=== PATIENT | female | born 1995 | race African-American/Black ===

== ENCOUNTER 2017-05-09 11:11 | Emergency (ER) | payer OTHER ==
[2017-05-09 11:43] LABS: Bilirubin Negative (Negative); Blood, Urine Moderate (Negative); Glucose, Urine (Dipstick) Negative (Negative); Ketone, Urine Negative (Negative); Nitrite Negative (Negative); Protein, Urine (Dipstick) Negative (Neg-Trace)
[2017-05-09 11:46] LABS: Bacteria/HPF Rare-Few HPF (None Seen); Hyaline Casts/LPF 0-3 HYALINE CAST LPF (0-3 Hyaline); RBC/HPF 21-50 HPF (0-3); WBC/HPF 21-50 HPF (0-3)
[2017-05-09] MEDS ORDERED: cefTRIAXone\\ROCEPHIN 1 GM VIAL ONE (13:25)
[2017-05-09] MEDS ORDERED: Lidocaine 1% PF 5 ML VIAL ONE (13:25)
== END 2017-05-09 13:50 | disposition home or self-care (01) ==
LOC: ERS 11:11
DX: N93.9 Abnormal uterine and vaginal bleeding, unspecified (principal); J45.909 Unspecified asthma, uncomplicated; F20.9 Schizophrenia, unspecified; F31.9 Bipolar disorder, unspecified; Z20.2 Contact with and (suspected) exposure to infections with a predominantly sexual mode of transmission
CPT/HCPCS: 81003; 81015; 81025; 87086; 87480; 87491; 87510; 87591; 87660; 96372; J0696; J2001

== ENCOUNTER 2017-07-27 02:05 | Emergency (ER) | payer SELFPAY ==
[2017-07-27] MEDS ORDERED: Ketorolac Tromethamine 30 MG/ML VIAL ONE (04:13)
--- NOTE | 2017-08-10 11:18 | EKG ---
Test Reason : Blood Pressure : / mmHG Vent. Rate : 063 BPM Atrial Rate : 063 BPM P-R Int : 170 ms QRS Dur : 072 ms QT Int : 406 ms P-R-T Axes : 009 055 043 degrees QTc Int : 415 ms Normal sinus rhythm with sinus arrhythmia Normal ECG Confirmed by LISANDRA POTTS M.D. ([id number]), book editor SG TOLEDO ([id number]) on 08/10/2017 11:18:12 AM Referred By: Confirmed By:LISANDRA POTTS M.D.
== END 2017-07-27 04:10 | disposition home or self-care (01) ==
LOC: ERS 02:05
DX: H60.92 Unspecified otitis externa, left ear (principal); J45.909 Unspecified asthma, uncomplicated; F31.9 Bipolar disorder, unspecified; F20.9 Schizophrenia, unspecified; D64.9 Anemia, unspecified
CPT/HCPCS: 93005; 96372; J1885

== ENCOUNTER 2017-10-18 12:46 | Emergency (ER) | payer SELFPAY ==
[2017-10-18 13:36] LABS: #Eosinphils 0.1 thou/uL (0.0-0.7); #Lymphocytes 1.3 thou/uL (1.20-3.40); #Monocytes 0.6 thou/uL (0.11-0.59); #Neutrophils 5.3 thou/uL (1.40-6.50); %Basophils 0.4 % (0.0-1.0); %Eosinophils 1.1 % (0.0-10.0); %Lymphocytes 17.8 % (21.0-51.0); %Monocytes 8.2 % (0.0-10.0); %Neutrophils 72.5 % (42.0-75.0); Hemoglobin 13.8 g/dL (12.0-16.0); Mean Corpuscular HGB CONC 33.6 g/dL (32.0-36.0); Mean Corpuscular Hemoglobin 30.8 pg (27.0-31.0); Mean Corpuscular Volume 91.8 fl (81.0-99.0); Mean Platelet Volume 6.6 fL (7.4-10.4); Platelet Count 284 thou/uL (130-400); RBC Distribution Width 11.5 % (11.5-14.5); Red Blood Cell (RBC) Count 4.48 mill/uL (4.20-5.40); White Blood Cell (WBC) Count 7.3 thou/uL (4.8-10.8)
[2017-10-18] MEDS ORDERED: Ibuprofen 800 MG TAB ONE (13:36)
[2017-10-18] MEDS ORDERED: Ondansetron HCl/PF 4 MG/2 ML Vial ONE (13:36)
[2017-10-18 14:02] LABS: Bilirubin Negative (Negative); Blood, Urine Negative (Negative); Clarity CLEAR (Clear); Glucose, Urine (Dipstick) Negative (Negative); Leukocyte Negative (Negative); Nitrite Negative (Negative); Protein, Urine (Dipstick) Trace mg/dL (Neg-Trace); Specific Gravity, Urine 1.022 (1.002-1.036)
[2017-10-18 14:03] LABS: Pregnancy Test - Urine (BHCG) Negative (Negative); Pregu Control Background? CLEAR/WHITE (CLR/WHITE); Pregu Control Bar Appear? YES (CONTROL BAR); Specific Gravity 1.022 (1.002-1.036)
== END 2017-10-18 15:33 | disposition home or self-care (01) ==
LOC: ERS 12:46
DX: B34.9 Viral infection, unspecified (principal); J45.909 Unspecified asthma, uncomplicated; D64.9 Anemia, unspecified; F31.9 Bipolar disorder, unspecified; F20.9 Schizophrenia, unspecified
CPT/HCPCS: 36415; 81003; 81025; 85025; 96361; 96374; J2405

== ENCOUNTER 2017-12-06 18:40 | Emergency (ER) | payer SELFPAY ==
[2017-12-06 19:17] LABS: Bilirubin Negative (Negative); Blood, Urine Negative (Negative); Clarity CLOUDY (Clear); Glucose, Urine (Dipstick) Negative (Negative); Leukocyte Negative (Negative); Nitrite Negative (Negative); Protein, Urine (Dipstick) Trace mg/dL (Neg-Trace); Specific Gravity, Urine 1.029 (1.002-1.036); pH, Urine 6.5 (5.0-9.0)
[2017-12-06 20:01] LABS: Eosinophils 1 % (0-10); Lymphocytes 64 % (21-51); MDiff Complete? YES; Mean Corpuscular HGB CONC 34.6 g/dL (32.0-36.0); Mean Corpuscular Hemoglobin 32.2 pg (27.0-31.0); Mean Corpuscular Volume 92.9 fl (81.0-99.0); Mean Platelet Volume 6.3 fL (7.4-10.4); Monocytes 5 % (0-10); Neutrophil 29 % (42-75); PLT Morphology Comment Appears Adequate; Platelet Count 307 thou/uL (130-400); RBC Distribution Width 11.2 % (11.5-14.5); RBC Morphology Normal; Reactive Lymphocytes 1 % (0-10); Red Blood Cell (RBC) Count 4.03 mill/uL (4.20-5.40); White Blood Cell (WBC) Count 5.1 thou/uL (4.8-10.8)
[2017-12-06] MEDS ORDERED: Ondansetron ODT 8 MG TAB ONE (20:11)
--- NOTE | 2017-12-06 21:46 | ULT ---
PELVIC ULTRASOUND WITH COLOR FLOW AND SPECTRAL DOPPLER: 12/06/17 HISTORY: Back pain. FINDINGS: The uterus is retroverted. A single live intrauterine gestation is seen with measurements correspondi ng to an estimated gestational age of 6 weeks, 1 day and HEIDI at 07/31/18. The crown-rump length measu res 0.44 cm and the heart rate measures 88 beats per minute. There is flow demonstrated to both ovaries. The ovaries are normal. No free fluid is seen in the cul- de-sac. IMPRESSION: Single live IUP of 6 weeks, 1 day estimated gestational age and HEIDI at 07/31/18. POS: [facility]
[2017-12-06] MEDS ORDERED: Promethazine HCl 25 MG/ML VIAL ONE (22:51)
== END 2017-12-07 00:10 | disposition home or self-care (01) ==
LOC: ERS 18:40
DX: O21.9 Vomiting of pregnancy, unspecified (principal); O99.511 Diseases of the respiratory system complicating pregnancy, first trimester; J45.909 Unspecified asthma, uncomplicated; O99.281 Endocrine, nutritional and metabolic diseases complicating pregnancy, first trimester; O99.011 Anemia complicating pregnancy, first trimester; O99.341 Other mental disorders complicating pregnancy, first trimester; F31.9 Bipolar disorder, unspecified; F20.9 Schizophrenia, unspecified; Z3A.01 Less than 8 weeks gestation of pregnancy
CPT/HCPCS: 36415; 76856; 81003; 84702; 85025; 96361; 96365; J2550

== ENCOUNTER 2017-12-19 17:10 | Emergency (ER) | payer SELFPAY ==
[2017-12-19 17:54] LABS: #Eosinphils 0.1 thou/uL (0.0-0.7); #Lymphocytes 2.6 thou/uL (1.20-3.40); #Monocytes 0.4 thou/uL (0.11-0.59); #Neutrophils 2.4 thou/uL (1.40-6.50); %Basophils 0.6 % (0.0-1.0); %Eosinophils 1.4 % (0.0-10.0); %Lymphocytes 47.2 % (21.0-51.0); %Monocytes 7.1 % (0.0-10.0); %Neutrophils 43.7 % (42.0-75.0); Hemoglobin 12.7 g/dL (12.0-16.0); Mean Corpuscular HGB CONC 34.5 g/dL (32.0-36.0); Mean Corpuscular Hemoglobin 31.3 pg (27.0-31.0); Mean Corpuscular Volume 90.7 fl (81.0-99.0); Mean Platelet Volume 6.2 fL (7.4-10.4); Platelet Count 292 thou/uL (130-400); RBC Distribution Width 11.2 % (11.5-14.5); Red Blood Cell (RBC) Count 4.05 mill/uL (4.20-5.40); White Blood Cell (WBC) Count 5.5 thou/uL (4.8-10.8)
[2017-12-19 18:14] LABS: ALT (SGPT) 10 U/L (8-55); AST (SGOT) 13 U/L (5-34); Albumin 4.5 g/dL (3.5-5.0); Alkaline Phosphatase 57 U/L (40-150); Anion Gap 11 mmol/L (10-20); BUN (Urea Nitrogen) 7 mg/dL (7.0-18.7); Bilirubin, Total 0.5 mg/dL (0.2-1.2); Calc. Creatinine Clearance 0 mL/min (70-130); Calcium 9.5 mg/dL (7.8-10.44); Carbon Dioxide 26 mmol/L (22-29); Chloride 99 mmol/L (98-107); Estimated GFR-MDRD Greater than 90; Globulin 3.3 g/dL (2.4-3.5); Glucose 96 mg/dL (70-105); Lipase 13 U/L (8-78); Potassium 4.3 mmol/L (3.5-5.1); Protein, Total 7.8 g/dL (6.0-8.3); Sodium 132 mmol/L (136-145)
[2017-12-19 19:06] LABS: Bilirubin Negative (Negative); Blood, Urine Negative (Negative); Clarity CLEAR (Clear); Glucose, Urine (Dipstick) Negative (Negative); Leukocyte Negative (Negative); Nitrite Negative (Negative); Protein, Urine (Dipstick) Negative (Neg-Trace); Specific Gravity, Urine 1.008 (1.002-1.036); Urobilinogen 0.2 mg/dL (0.2-1.0); pH, Urine 6.5 (5.0-9.0)
[2017-12-19 19:10] LABS: Pregnancy Test - Urine (BHCG) POSITIVE (Negative); Pregu Control Background? CLEAR/WHITE (CLR/WHITE); Pregu Control Bar Appear? YES (CONTROL BAR); Specific Gravity 1.008 (1.002-1.036)
== END 2017-12-19 19:23 | disposition home or self-care (01) ==
LOC: ERS 17:10
DX: O21.9 Vomiting of pregnancy, unspecified (principal); O99.511 Diseases of the respiratory system complicating pregnancy, first trimester; J45.909 Unspecified asthma, uncomplicated; O99.011 Anemia complicating pregnancy, first trimester; O99.341 Other mental disorders complicating pregnancy, first trimester; F31.9 Bipolar disorder, unspecified; F20.9 Schizophrenia, unspecified; Z3A.08 8 weeks gestation of pregnancy
CPT/HCPCS: 36415; 80053; 81003; 81025; 83690; 85025; 99284

== ENCOUNTER 2018-03-17 10:28 | Day surgery (SDC) | payer MEDICAID, OTHER ==
[2018-03-17 11:10] VITALS: BP 106/62; TEMP 99.7; BMI 22.8
--- NOTE | 2018-03-17 12:46 | PDOC.FPROB ---
FMR OB H&P: HPI - History of Present Illness Chief Complaint: dizziness, abdominal pain, leakage of fluid History of Present Illness: Patient is a 22YO @ 20.4 weeks consistent with her 10.0 week sono who presented today complaining of abdominal pain & leakage of clear fluid that has been ongoing for the last week. The patient reports constant leakage of clear fluid that started about 1 week ago. Denies any associated dysuria, hematuria, or vaginal discharge, itchiness, or bleeding. In addition that patient describes having constant, sharp, 8/10 lower abdominal pain that started 1 week ago when the fluid leakage began. She says the pain is slightly worse on the right side and has not been relieved with tylenol. Also reports that every 15- 20 minutes she feels that pain radiate all the way up to the top of her abdomen , but states that it goes away after a couple of minutes on its own. Also denies any fever, vomiting or chest pain. Endorses some chills but says she is always cold 2/2 her anemia. Also reports some nausea but nothing worse that what she has experiences thus far in . Regarding the patient's dizziness, she states that this has been ongoing since before her . She was seen in [facility] on 03/11/18 for this and prescribed a medicine but has not picked it up yet as her insurance has not cleared yet. She states that the dizziness is episodic and occurs sporadically. Patient could not identify any specific precipitating factors. She says that it feels like the room is spinning when it happens but that it goes away on its own after a few minutes. She also reports one fall ~ 3 days ago. Patient reports that she recovered quickly with help from her but did hit her abdomen on the side of her bed. Denies any exacerbation or worsening of her abdominal pain after this fall. FMR OB H&P: Current - Care : 3 Para: 1011 Gestational age: 20.4 weeks by LMP Course/Complications: None - OB Labs Blood type: O RH: positive Antibody Screen: negative HIV: negative RPR: negative HepBsAg: negative Rubella: immune Gonorrhea: negative Chlamydia: negative Pap Smear: WNL on 12/27/17 GBS: unknown H&H: 12.5/35.7 on 12/27/17 Platelets: 311 on 12/27/17 - First Trimester Ultrasound First trimester: 01/02/18 - NL adnexa, consistent w/ LMP, cardiac activity noted FMR OB H&P: History - Past Medical History PMH: h/o LANCE, GERD, bipolar disorder - OB History OB History: 1. h/o induced @ 36 weeks 2/2 IUGR 2. h/o SAB @ 4 weeks 3. h/o pyelonephritis during 1st requiring 1 week of hospitalization - LASTER HAND History LASTER HAND History: Last pap on 12/27/17 was WNL. - Surgical History Sx History: [place] teeth extraction - Social History Social History: Endorses past marijuana use but denies any current drug, EtOH, or tobacco abuse - Family History Family History: Mother- HTN & DM FMR OB H&P: Medications - Current Home Medications: Medication Instructions Recorded Confirmed Type No Known [No Known] 03/17/18 03/17/18 History Allergies/Adverse Reactions: Allergies Allergy/AdvReac Type Severity Reaction Status Date / Time divalproex sodium Allergy Severe Anaphylaxis Verified 03/17/18 11:11 [From Depakote] peanut Allergy Severe Short of Verified 03/17/18 11:11 Breath FMR OB H&P: ROS - Review of Systems General: reports: recent trauma. denies: fever/chills Cardiovascular: denies: chest pain Respiratory: reports: shortness of breath (No more than usual during ) Gastrointestinal: reports: abdominal pain, nausea. denies: vomiting, diarrhea, constipation Genitourinary (Female): denies: dysuria, hematuria, vaginal discharge, vaginal pain, vaginal bleeding Neurologic: reports: other (+ dizziness/vertigo) FMR OB H&P: Vital Signs - Maternal Vital signs: Vital Signs - First Documented Temp Pulse Resp BP Pulse Ox 99.7 F H 69 18 106/62 98 03/17/18 11:07 03/17/18 11:07 03/17/18 11:07 03/17/18 11:07 03/17/18 11:07 FMR OB H&P: Physical Exam - Physical Exam General: NAD, awake, alert and oriented HEENT: normocephalic and atraumatic, conjunctiva clear Neck: FROM Heart: RRR, normal S1/S2, no edema General: CTAB, no respiratory distress, good air movement, no wheezing Abdomen: soft, gravid, bowel sound present, other (Exquisitely tender to palpation all across lower abdomen with pain slightly worse in RLQ.) Musculoskeletal: other (B/L CVA tenderness, worse on the left.) Neurological: cranial nerves II through XII intact, sensation to pain,touch and proprioception grossly normal Skin: no rash, good tugor Lymphatic: no unusual bruising or bleeding Psychiatric: intact recent and remote memory, good judgement and insight, normal mood and affect - Pelvic Exam Vulva: normal hair distribution, no masses, no lesions, no blood, normal rugae Cervix: no masses, no lesions, no blood (No pooling of fluid or gush of fluid noted on valsalva on cervical exam.) Deviation from normal: white, curdlike discharge around a closed, normal appearing cervix. FMR OB H&P: A/P - Problem List (1) Abdominal pain during Status: Acute Code(s): O26.899 - OTH RELATED CONDITIONS, UNSPECIFIED TRIMESTER; R10.9 - UNSPECIFIED ABDOMINAL PAIN (2) in second trimester with history of Status: Acute Code(s): O09.292 - SUPRVSN OF PREG W POOR REPRODCTV OR OBSTET HX , SECOND TRI Disposition: 22YO @ 20.4 weeks consistent with 10 week sono who presents with a CC of abdominal pain & leakage of clear fluid x 1 week. 1. Abdominal pain: - Abdominal pain & CVA tenderness noted on PE. CBC & BMP pending to r/o pyelo given patients history. Patient's vitals have been WNL with a low-grade temp of 99.7F noted on presentation. - UA via straight cath with Cx pending. 2. Leakage of fluid: - Amnisure pending to r/o ROM. No gush of fluid noted on valsalva and no pooling noted on cervical exam. - Also obtained VP3 & GC/chlamydia swabs to r/o other sources of infection that could be causing her pain and/or fluid leakage. 3. 2nd trimester of : - Will continue to monitor. heart doppler reassuring with baseline HR in the 140s. - Dizziness likely 2/2 and possible anemia. CBC pending. Will continue with PO hydration. - Will instruct to f/u w/ PCP as scheduled following d/c. Discussion: Date/Time: 03/17/18 1234 This H&P was discussed with Dr. Gomez and Dr. Webb who agree with the above documentation and plan. Attending Addendum - Attending Addendum Date/Time: 03/17/182016 I personally evaluated the patient at 1245 pm and discussed the management with Dr. Guerrero. H&P repeated by me. I agree with the History, Examination, Assessment and Plan documented above with any addition or exceptions noted below. 22 y/o at 20 weeks who presents with lower abdominal pain and leaking fluid. Pain described as intermittent and aching. Also some mild back pain. Denies fever/chills, vag discharge, vag bleeding. Given tylenol and po fluids. Vag exam done and shows closed cervix without pooling or significant discharge. Abdominal exam shows mild suprapubilc and RLQ/LLQ tenderness without rebound or guarding. FHTS 140s. Amniosure and VP3 negative. 1) Round ligament pain- patient improved after tylenol and lunch. Patient has u/s scheduled for tomorrow. No sign of UTI/pyelonephritis, appendicitis, gallbladder disease. Stable for d/c home.
[2018-03-17 13:02] LABS: Bilirubin Negative (Negative); Blood, Urine Negative (Negative); Clarity CLEAR (Clear); Glucose, Urine (Dipstick) Negative (Negative); Leukocyte Negative (Negative); Nitrite Negative (Negative); Protein, Urine (Dipstick) Negative (Neg-Trace); Specific Gravity, Urine 1.028 (1.002-1.036); pH, Urine 6.5 (5.0-9.0)
[2018-03-17 13:05] LABS: Bacteria/HPF 1+ HPF (None Seen); Hyaline Casts/LPF 4-6 HYALINE CAST LPF (0-3 Hyaline); Pathc Cast-AUWi Flag 0.87 (0-2.49); RBC/HPF 0-3 HPF (0-3); WBC/HPF 0-3 HPF (0-3)
[2018-03-17 13:06] LABS: #Eosinphils 0.1 thou/uL (0.0-0.7); #Lymphocytes 1.5 thou/uL (1.20-3.40); #Monocytes 0.3 thou/uL (0.11-0.59); #Neutrophils 2.3 thou/uL (1.40-6.50); %Basophils 0.1 % (0.0-1.0); %Eosinophils 1.7 % (0.0-10.0); %Lymphocytes 36.2 % (21.0-51.0); %Monocytes 7.8 % (0.0-10.0); %Neutrophils 54.3 % (42.0-75.0); Hemoglobin 11.5 g/dL (12.0-16.0); Mean Corpuscular HGB CONC 33.5 g/dL (32.0-36.0); Mean Corpuscular Hemoglobin 31.8 pg (27.0-31.0); Mean Platelet Volume 6.6 fL (7.4-10.4); Platelet Count 247 thou/uL (130-400); RBC Distribution Width 11.8 % (11.5-14.5); Red Blood Cell (RBC) Count 3.61 mill/uL (4.20-5.40); White Blood Cell (WBC) Count 4.2 thou/uL (4.8-10.8)
[2018-03-17 13:09] LABS: Amnisure Test No Membranes Rupture (No Rupture)
[2018-03-17 13:10] LABS: Amnisure Internal Control QC ACCEPTABLE (ACCEPTABLE)
[2018-03-17 13:22] LABS: Anion Gap 12 mmol/L (10-20); BUN (Urea Nitrogen) 6 mg/dL (7.0-18.7); Calc. Creatinine Clearance 158 mL/min (70-130); Calcium 8.8 mg/dL (7.8-10.44); Carbon Dioxide 21 mmol/L (22-29); Chloride 105 mmol/L (98-107); Estimated GFR-MDRD Greater than 90; Glucose 81 mg/dL (70-105); Potassium 3.7 mmol/L (3.5-5.1); Sodium 134 mmol/L (136-145)
[2018-03-19 05:45] LABS: Chlamydia by PCR Not Detected (NotDetected); GC by PCR Not Detected (NotDetected)
== END 2018-03-17 14:56 | disposition home or self-care (01) ==
LOC: L&D/OP 10:28
PROVIDERS: ATTEND Family Medicine
DX: O99.89 Other specified diseases and conditions complicating pregnancy, childbirth and the puerperium (principal); N89.8 Other specified noninflammatory disorders of vagina; R10.30 Lower abdominal pain, unspecified; O09.292 Supervision of pregnancy with other poor reproductive or obstetric history, second trimester; Z3A.20 20 weeks gestation of pregnancy; Z91.010 Allergy to peanuts; Z88.8 Allergy status to other drugs, medicaments and biological substances
CPT/HCPCS: 36415; 51701; 80048; 81001; 84112; 85025; 87086; 87480; 87491; 87510; 87591; 87660; 99285

== ENCOUNTER 2018-06-23 19:43 | Day surgery (SDC) | payer OTHER ==
[2018-06-23 20:51] LABS: Amnisure Internal Control QC ACCEPTABLE (ACCEPTABLE); Amnisure Test No Membranes Rupture (No Rupture)
--- NOTE | 2018-06-23 21:03 | PDOC.FPROB ---
FMR OB H&P: HPI - History of Present Illness Chief Complaint: LOF History of Present Illness: 23 yo @ 34.3 wks by LMP presents with CC of gush of fluid at 1800 today while she was sitting on couch. She then went to bathroom and wiped off some dark blood. Reports low back and lower abdominal pain that is at baseline for her. Denies dysuria, changes in urination, vaginal discharge or bleeding, contractions. Feels activity. Reports headache. 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 Denies tobacco, alcohol, drug use. - Family History Family History: mother - HTN, DM FMR OB H&P: Medications - Current Home Medications: Medication Instructions Recorded Confirmed Type 21/Iron Fu/Folic Acid 1 tablet PO DAILY 06/23/18 06/23/18 History [ Complete Caplet] Allergies/Adverse Reactions: Allergies Allergy/AdvReac Type Severity Reaction Status Date / Time divalproex sodium Allergy Severe Anaphylaxis Verified 06/23/18 20:25 [From Depakote] peanut Allergy Severe Short of Verified 06/23/18 20:25 Breath FMR OB H&P: ROS - Review of Systems Genitourinary (Female): reports: polyuria, vaginal discharge (normal, clear). denies: dysuria, hesitancy, vaginal pain, vaginal bleeding, contractions, vaginal pressure FMR OB H&P: Vital Signs - Heart Tones Baseline: 145 Variability: moderate Acceleration: present Deceleration: absent Category: category 1 [place] contractions every: none FMR OB H&P: Physical Exam - Physical Exam General: NAD Heart: RRR, normal S1/S2 General: CTAB, no respiratory distress Abdomen: gravid, non-tender, bowel sound present - Pelvic Exam Vulva: normal hair distribution Cervix: no blood Deviation from normal: white, chunky discharge consistent w/ yeast. On sterile spec, cervix closed FMR OB H&P: Results - Labs Lab results: Laboratory Results - last 24 hr 06/23/18 20:30 Amnio Swab Test No Membranes Rupture FMR OB H&P: A/P - Problem List (1) Status: Acute Qualifiers: Weeks of gestation: 34 weeks Qualified Code(s): Z3A.34 - 34 weeks gestation of (2) Anemia affecting Status: Acute Code(s): O99.019 - ANEMIA COMPLICATING , UNSPECIFIED TRIMESTER Comment: Continue iron supplementation. Discussion: Date/Time: 06/23/182101 Leakage of fluid - amnisure negative - sterile spec exam showed closed cervix, significant white chunky discharge consistent with yeast - ROM unlikely - will send VP3 and follow up results with patient with if positive IUGR - monitored with frequent ultrasounds Anemia - on iron supplements Hx of drug abuse - UDS negative Dispo: discharge home, will follow up on VP3 results with patient tomorrow This H&P was discussed with Dr. Kim who agree with the above documentation and plan. Attending Addendum - Attending Addendum Date/Time: 06/24/18 0039 I personally evaluated the patient and discussed the management with Dr. Garcia. I agree with the History, Examination, Assessment and Plan documented above.
[2018-06-23 21:21] LABS: Amphetamine Not Detected (NotDetected); Barbiturates Screen Not Detected (NotDetected); Benzodiazepine Screen Not Detected (NotDetected); Cocaine Metabolite Screen Not Detected (NotDetected); Medtox Control Line Valid? VALID (VALID); Medtox Reader # READER 1; Methadone Not Detected (NotDetected); Methamphetamine Not Detected (NotDetected); Opiate Screen Not Detected (NotDetected); Oxycodone Screen Not Detected (NotDetected); Phencyclidine (PCP) Not Detected (NotDetected); THC/Cannabinoid Screen Not Detected (NotDetected); Tricyclic Screen Not Detected (NotDetected)
== END 2018-06-23 21:50 | disposition home or self-care (01) ==
LOC: L&D/OP 19:43
PROVIDERS: ATTEND Obstetrics & Gynecology
DX: O99.89 Other specified diseases and conditions complicating pregnancy, childbirth and the puerperium (principal); N89.8 Other specified noninflammatory disorders of vagina; M54.5 Low back pain; R10.30 Lower abdominal pain, unspecified; O99.013 Anemia complicating pregnancy, third trimester; D50.9 Iron deficiency anemia, unspecified; O99.613 Diseases of the digestive system complicating pregnancy, third trimester; K21.9 Gastro-esophageal reflux disease without esophagitis; O99.343 Other mental disorders complicating pregnancy, third trimester; F31.9 Bipolar disorder, unspecified; O36.5930 Maternal care for other known or suspected poor fetal growth, third trimester, not applicable or unspecified; O98.813 Other maternal infectious and parasitic diseases complicating pregnancy, third trimester; B37.9 Candidiasis, unspecified; B96.89 Other specified bacterial agents as the cause of diseases classified elsewhere; Z3A.34 34 weeks gestation of pregnancy; Z79.899 Other long term (current) drug therapy; Z88.8 Allergy status to other drugs, medicaments and biological substances; Z91.010 Allergy to peanuts
CPT/HCPCS: 80306; 84112; 87480; 87510; 87660; 99284

== ENCOUNTER 2018-07-16 13:01 | Inpatient (IN) | payer OTHER ==
[2018-07-16 13:47] VITALS: BMI 24.1
[2018-07-16] MEDS ORDERED: Ondansetron ODT 8 MG TAB SL SCH (16:15)
[2018-07-16] MEDS ORDERED: Morphine 10 MG/ML VIAL IM SCH (16:15)
--- NOTE | 2018-07-16 16:15 | PDOC.FPROB ---
FMR OB H&P: HPI - History of Present Illness Chief Complaint: Contractions History of Present Illness: 23 yo at 37.5w by LMP/9.6w sono here with cc of contractions. She reports she had her cervix checked yesterday and was told she was 4.5 cm dilated. It was recommended she come to L&D at that time and she preferred not to. She notes that contractions started last night and have been occurring approximately every 15 minutes. She denies any LOF or vaginal bleeding. She endorses good movement. She has been noticing a little dark specks of blood in mucus discharge. Primary Care Physician: Fabiana Reilly MD at Clinic FMR OB H&P: Current - Care : 3 Para: 1011 Due date: 08/01/18 Dating Criteria: LMP/9.6w sono - OB Labs Blood type: O RH: positive Antibody Screen: negative HIV: negative RPR: negative HepBsAg: negative Rubella: immune Quad screen: negative Gonorrhea: negative Chlamydia: negative Pap Smear: NILM 1 hour gtt: 86 GBS: positive - First Trimester Ultrasound First trimester: 9.6w - Anatomy Survey Anatomy survey: Normal, anterior placenta, face/lips/nose not well visualized FMR OB H&P: History - Past Medical History PMH: Asthma (last inhaler use 1 week ago) Bipolar disorder Anemia of GERD - OB History OB History: 10/3016 (IUGR) delivered at [facility], 1st degree lac 12/2014 SAB at 4 weeks - Surgical History Sx History: [place] teeth - Social History Social History: Denies tobacco or alcohol Endorses marijuana use, last use at 12 weeks gestation - Family History Family History: Mother- DM and HTN FMR OB H&P: Medications - Current Home Medications: Medication Instructions Recorded Confirmed Type 21/Iron Fu/Folic Acid 1 tablet PO DAILY 06/23/18 07/16/18 History [ Complete Caplet] Ferrous Sulfate [Iron] 325 mg PO DAILY 07/16/18 07/16/18 History Allergies/Adverse Reactions: Allergies Allergy/AdvReac Type Severity Reaction Status Date / Time divalproex sodium Allergy Severe Anaphylaxis Verified 07/16/18 13:48 [From Depakote] peanut Allergy Severe Short of Verified 07/16/18 13:48 Breath FMR OB H&P: ROS - Review of Systems General: denies: fever/chills, weight/appetite/sleep changes Eyes: denies: vision changes, double vision ENT: denies: nasal congestion, rhinorrhea Cardiovascular: denies: chest pain, palpitation Respiratory: denies: cough, congestion Gastrointestinal: reports: cramping. denies: nausea, vomiting Genitourinary (Female): denies: incontinence, dysuria Musculoskeletal: denies: pain, stiffness Integumentary: denies: itching, rash Endocrine: denies: polydipsia, polyuria FMR OB H&P: Vital Signs - Maternal Vital signs: Vital Signs - First Documented Temp Pulse Resp BP 99.1 F 92 18 117/65 07/16/18 13:41 07/16/18 13:41 07/16/18 13:41 07/16/18 13:41 - Heart Tones Baseline: 130 Variability: moderate Acceleration: present Deceleration: absent [place] contractions every: 15 per patient FMR OB H&P: Physical Exam - Physical Exam General: NAD, awake, alert and oriented HEENT: normocephalic and atraumatic, MMM Neck: supple, trachea midline Heart: RRR, normal S1/S2 General: CTAB, no respiratory distress Abdomen: soft, gravid, non-tender Musculoskeletal: normal gait and station, pulses present Skin: no rash, good tugor Psychiatric: intact recent and remote memory, good judgement and insight - Pelvic Exam SVE: 460/-3 Estimated Weight: 7 lbs FMR OB H&P: A/P - Problem List (1) Primigravida in third trimester Current Visit: No Status: Acute Code(s): Z34.03 - ENCNTR FOR SUPRVSN OF NORMAL FIRST PREG, THIRD TRIMESTER Comment: Induction for head sparing IUGR. S/p 4 cytotec and cervidil. Late decel with minimal variability. FSE placed. Irregularity in contractions. Baby ROP. (2) Asthma Current Visit: Yes Status: Acute Code(s): J45.909 - UNSPECIFIED ASTHMA, UNCOMPLICATED (3) Bipolar disorder Current Visit: Yes Status: Acute Code(s): F31.9 - BIPOLAR DISORDER, UNSPECIFIED Disposition: 23 yo at 37.5w by LMP/9.6w sono here with contractions 1. Contractions - Patient endorses q15 minutes - No LOF, VB, endorsing good movement - Suspect latent labor - Cervix unchanged since clinic visit yesterday - PO hydration 2. Asthma - last inhaler use 1 week ago - avoid Hemabate 3. Bipolar d/o - Not on medications - Stable this per patient 4. Anemia of - Continue iron and PNV Will recheck in 2 hours Discussion: Date/Time: 07/16/18 4182 This H&P was discussed with Dr. Miguel who agrees with the above documentation and plan. Signature: Lianne Zazueta MD, PGY-3
--- NOTE | 2018-07-16 16:44 | PDOC.LDPN ---
Labor & Delivery Progress Note - Subjective Subjective: painful contractions - Objective Vital signs reviewed and normal: yes General: resting Dilation: 4.5/70/-3 [place] contractions every: patient reports q10 min - Assessment (1) Primigravida in third trimester Code(s): Z34.03 - ENCNTR FOR SUPRVSN OF NORMAL FIRST PREG, THIRD TRIMESTER Current Visit: No Status: Acute Comment: Induction for head sparing IUGR. S /p 4 cytotec and cervidil. Late decel with minimal variability. FSE placed. Irregularity in contractions. Baby ROP. (2) Asthma Code(s): J45.909 - UNSPECIFIED ASTHMA, UNCOMPLICATED Current Visit: Yes Status: Acute (3) Bipolar disorder Code(s): F31.9 - BIPOLAR DISORDER, UNSPECIFIED Current Visit: Yes Status: Acute Plan: continue plan of care -: 23 yo at 37.5w by LMP/9.6w sono here with contractions 1. Latent labor - Cervix slightly more dilated and thinner - Patient endorses now q10 minutes - Will give 8mg IM morphine and 8mg SL zofran and monitor Will recheck in 1-2 hours
[2018-07-16] MEDS ORDERED: Promethazine HCl 25 MG/ML VIAL IM PRN (17:58)
[2018-07-16] MEDS ORDERED: NS / Oxytocin 40 units/1000ml 1,000 ML IV PRN (17:58)
[2018-07-16] MEDS ORDERED: Lidocaine 1% (PF) 30 ML VIAL SC PRN (17:58)
--- NOTE | 2018-07-16 18:08 | PDOC.LDPN ---
Labor & Delivery Progress Note - Subjective Subjective: painful contractions - Objective Vital signs reviewed and normal: yes General: resting Uterine fundus: non tender Dilation: 6 Effacement: 75% Station: -3 FHT: category 1 [place] contractions every: 4-10 - Assessment (1) Primigravida in third trimester Code(s): Z34.03 - ENCNTR FOR SUPRVSN OF NORMAL FIRST PREG, THIRD TRIMESTER Current Visit: No Status: Acute Comment: Induction for head sparing IUGR. S /p 4 cytotec and cervidil. Late decel with minimal variability. FSE placed. Irregularity in contractions. Baby ROP. (2) Asthma Code(s): J45.909 - UNSPECIFIED ASTHMA, UNCOMPLICATED Current Visit: Yes Status: Acute (3) Bipolar disorder Code(s): F31.9 - BIPOLAR DISORDER, UNSPECIFIED Current Visit: Yes Status: Acute Plan: continue plan of care -: 23 yo at 37.5w by LMP/9.6w sono here in latent labor 1. Latent labor - Making cervical change - Will admit to L&D for expectant management - Epidural when desired Recheck in 4 hours or sooner if increased pressure/indicated
[2018-07-16 19:01] LABS: Hemoglobin 10.9 g/dL (12.0-16.0); Mean Corpuscular HGB CONC 34.6 g/dL (32.0-36.0); Mean Corpuscular Hemoglobin 33.5 pg (27.0-31.0); Mean Corpuscular Volume 96.8 fL (78.0-98.0); Mean Platelet Volume 6.5 fL (7.4-10.4); Platelet Count 255 thou/uL (130-400); RBC Distribution Width 12.7 % (11.5-14.5); Red Blood Cell (RBC) Count 3.25 mill/uL (4.20-5.40); White Blood Cell (WBC) Count 5.7 thou/uL (4.8-10.8)
[2018-07-16 19:39] LABS: Syphilis Antibody Nonreactive (Nonreactive); Syphilis Antibody Index 0.06 S/CO (<1.00 Non-Reactive)
[2018-07-16 19:41] LABS: HBSAg Index 0.22 S/CO (0-0.99); HIV (1/2) Antibody/Antigen Non-Reactive (NonReactive); HIV 1/2 INDEX 0.14 S/CO (<1.00); Hep B Surf Ag Non-Reactive S/CO (NonReactive)
--- NOTE | 2018-07-16 22:40 | PDOC.LDPN ---
Labor & Delivery Progress Note - Subjective Subjective: comfortable - Objective Vital signs reviewed and normal: yes General: NAD Dilation: 6 Effacement: 75% Station: -2 - Assessment (1) Term Code(s): Z34.80 - ENCOUNTER FOR SUPRVSN OF NORMAL , UNSP TRIMESTER Current Visit: Yes Status: Acute -: 23 yo @37.5wks by LMP/9.6w presents with contractions, admitted in latent labor. #Early Term #Latent labor -Plan: continue expectant management. No medical indication for induction. Will observe overnight and if no change in the morning, will consider discharge. Pt is not having painful contractions that are regular.
[2018-07-17] MEDS: Ondansetron PF 4 MG/2 ML Vial IVP PRN ×2 (01:36→12:33)
[2018-07-17] MEDS: Lactated Ringer's 1,000 ML IV SCH ×2 (06:45→11:03)
--- NOTE | 2018-07-17 07:19 | PDOC.LDPN ---
Labor & Delivery Progress Note - Subjective Subjective: comfortable - Objective Vital signs reviewed and normal: yes General: resting Uterine fundus: non tender Dilation: 5-6 Effacement: 75% Station: -3 FHT: category 1 (120/mod/+accel/no decel) [place] contractions every: 2-3 minutes - Assessment (1) Primigravida in third trimester Code(s): Z34.03 - ENCNTR FOR SUPRVSN OF NORMAL FIRST PREG, THIRD TRIMESTER Current Visit: No Status: Acute Comment: Induction for head sparing IUGR. S /p 4 cytotec and cervidil. Late decel with minimal variability. FSE placed. Irregularity in contractions. Baby ROP. (2) Asthma Code(s): J45.909 - UNSPECIFIED ASTHMA, UNCOMPLICATED Current Visit: Yes Status: Acute (3) Bipolar disorder Code(s): F31.9 - BIPOLAR DISORDER, UNSPECIFIED Current Visit: Yes Status: Acute Plan: continue plan of care -: 23 yo @37.6wks by LMP/9.6w (EDC 08/01/18) presented with contractions, admitted in latent labor. 1. Latent labor, sIUP - Cervix still 5-6 cm - [place] more frequently - Will continue expectant management - Consider pitocin augmentation at next check MD Lois, PGY-3
--- NOTE | 2018-07-17 08:14 | PDOC.LDPN ---
Labor & Delivery Progress Note - Subjective Subjective: comfortable - Objective Vital signs reviewed and normal: yes General: NAD, resting Dilation: 5 Effacement: 75% Station: -3 FHT: category 1 - Assessment (1) Term Code(s): Z34.80 - ENCOUNTER FOR SUPRVSN OF NORMAL , UNSP TRIMESTER Current Visit: Yes Status: Acute Plan: continue plan of care -: 23 yo @37.5wks by LMP/9.6w presents with contractions, admitted in latent labor. #Early Term #Latent labor -Plan: continue expectant management. No medical indication for induction. Will observe overnight and if no change in the morning. Pt is not having painful contractions that are regular.
--- NOTE | 2018-07-17 08:28 | PDOC.EVN ---
Event Note - Event Note Event Note: Discussed plan of care with patient. She reports she is feeling painful contractions every 7 minutes but pain is manageable at this time. She would like to get up and walk around if possible. Discussed that if she has not progressed by 5pm today, we will plan to discharge home as she is in latent labor. She is agreeable to plan. Dr. Key present in the room. T Cat 1. Ctx q2-4 minutes. <Lianne Zazueta - Last Filed: 07/17/18 08:24> - Event Note Event Note: Faculty: Case reviewed with Dr Zazueta and Dr Miguel. Patient seen at bedside. Latent phase discussed with her. Patient desires to walk/ambulate for pain control. If no SROM or progressive change by 1700 (24 hrs obs) OK to release home as latent phase as per [employer] "Approaches to minimize interventions in L&D", publication. <Cesar Key - Last Filed: 07/17/18 08:34>
--- NOTE | 2018-07-17 10:42 | PRG ---
DATE OF SERVICE: 07/17/2018 SUBJECTIVE: The patient is a 23-year-old female, G1, P0, with intrauterine at 37 weeks and 6 days, who was admitted yesterday for presumed labor; however, the patient has been expectantly managed given her gestational age and has remained unchanged since yesterday afternoon. The patient does report that her contractions are becoming more regular and more intense; however, has declined pain medications. OBJECTIVE: VITAL SIGNS: This morning, blood pressure is 107/65, heart rate of 81, respiratory rate 16, temperature 98.3. GENERAL: She appears to be in no acute distress. She is alert, oriented, cooperative, pleasant to interact with. HEENT: Head is normocephalic and atraumatic. GENITOURINARY: My cervical exam placed her at 4, 60% to 70% effaced, -3 station, which is the same she was on her initial presentation. Cervix is soft, but posterior and vertex. ASSESSMENT AND PLAN: The patient is a 23-year-old, G1, P0 female, here admitted for presumed labor, but continues latent labor. Contractions are becoming more regular and closer together. I will continue expectant management and anticipate today at sometime at some point getting into active phase. Job ID: [id number] [facility]
[2018-07-17] MEDS ORDERED: Fentanyl 4 mcg/Bup 0.1% Cadd 100 ML ONE (10:53)
--- NOTE | 2018-07-17 11:07 | PDOC.EVN ---
Event Note - Event Note Event Note: 07/17/18 @ 1100 S: Patient desiring epidural O: Patient has progressed to 7 cm dilation. FHTS: Baseline 135, mod variability, accels present, no decels, stephy q2- 3 minutes A&P: -Admit for Labor -Epidural for anesthesia -FHTs Cat 1, continue to monitor -Recheck q2 hrs
[2018-07-17] MEDS ORDERED: Bupivacaine/Epinephrine 0.25% 30 ML VIAL ONE (11:11)
[2018-07-17] MEDS ORDERED: Promethazine HCl 25 MG/ML VIAL IM PRN (11:18)
[2018-07-17] MEDS ORDERED: Lactated Ringer's 500 ML IV PRN (11:18)
[2018-07-17] MEDS ORDERED: Eucerin (Mineral Oil/Petrolatum,White) 30 gm Jar TOP PRN (11:18)
[2018-07-17] MEDS ORDERED: Naloxone HCl 0.4 mg/ml Vial IVP PRN ×2 (11:18)
[2018-07-17] MEDS ORDERED: Ondansetron PF 4 MG/2 ML Vial IVP PRN ×2 (11:18→18:41)
[2018-07-17] MEDS ORDERED: ePHEDrine/0.9% NaCl/PF SYRINGE 50 mg/10 ml SLOW IVP PRN (11:18)
[2018-07-17] MEDS ORDERED: diphenhydrAMINE 50 MG/ML VIAL IVP PRN (11:18)
[2018-07-17] MEDS ORDERED: Communication Order-Pharmacy FS SCH (11:30)
[2018-07-17] MEDS ORDERED: Fentanyl 4 mcg/Bupivacaine 0.1% Cassette 100 ML EPIDURAL SCH (11:30)
--- NOTE | 2018-07-17 12:41 | PDOC.LDPN ---
Labor & Delivery Progress Note - Subjective Subjective: comfortable, other (nauseated) - Objective Vital signs reviewed and normal: yes General: NAD SVE: /-1 Dilation: 8 Effacement: 90% Station: -1 FHT: category 1, variability present [place] contractions every: q5-7 minutes - Assessment (1) Term Code(s): Z34.80 - ENCOUNTER FOR SUPRVSN OF NORMAL , UNSP TRIMESTER Current Visit: Yes Status: Acute Plan: continue plan of care -: 23 yo @37.6wks by LMP/9.6w (EDC 08/01/18) presented with contractions, admitted in latent labor. 1. Latent labor, sIUP - Cervix /-1 @ 1230 - Contractions spaced to q5-7 minutes - Will continue expectant management
--- NOTE | 2018-07-17 14:23 | PDOC.EVN ---
Event Note - Event Note Event Note: D/W L Buse...in L&D Time: 1425 Last exam was 8cm...we will check at 2 hr bernabe (1430) and AROM for IUPC placement in case pitocin is needed (MVU tracking)
[2018-07-17 14:28] LABS: Medtox Reader # READER 2; THC/Cannabinoid Screen Not Detected (NotDetected)
[2018-07-17 14:29] LABS: Amphetamine Not Detected (NotDetected); Barbiturates Screen Not Detected (NotDetected); Benzodiazepine Screen Not Detected (NotDetected); Cocaine Metabolite Screen Not Detected (NotDetected); Medtox Control Line Valid? VALID (VALID); Methadone Not Detected (NotDetected); Methamphetamine Not Detected (NotDetected); Opiate Screen Not Detected (NotDetected); Oxycodone Screen Not Detected (NotDetected); Phencyclidine (PCP) Not Detected (NotDetected); Tricyclic Screen Not Detected (NotDetected)
--- NOTE | 2018-07-17 14:35 | PDOC.EVN ---
Event Note - Event Note Event Note: @1430: Exam by me and Tanya Moore. My exam: /...AROM not performed due to nonengaged head. I requested Dr Tanya Moore confirm cephalic via sono (although I can feel sutures...just want to confirm due to -1 station). EFW about 7# by me clinically. All thjis was explained to the patient and family.
--- NOTE | 2018-07-17 14:49 | PDOC.LDPN ---
Labor & Delivery Progress Note - Subjective Subjective: comfortable - Objective Vital signs reviewed and normal: yes General: NAD SVE: /-1 Effacement: 100% Station: -1 FHT: category 2, early decelerations (2 early decels), variability present [place] contractions every: 5-7 minutes - Assessment (1) Term Code(s): Z34.80 - ENCOUNTER FOR SUPRVSN OF NORMAL , UNSP TRIMESTER Current Visit: Yes Status: Acute Plan: continue plan of care -: 23 yo @37.6wks by LMP/9.6w (EDC 08/01/18) presented with contractions, admitted in latent labor. 1. Latent labor, sIUP - Cervix /-1 @ 1430, ballotable; AROM not done as head is not engaged - FHTs category 2: baseline 130s, mod variability, accels present, 2 early decels - Contractions still spaced to q5-7 minutes, patient is making adequate change - Ultrasound confirms cephalic presentation - Will continue expectant management - Repeat cervical check in q2h
[2018-07-17] MEDS ORDERED: NS / Oxytocin 40 units/1000ml 1,000 ML IV PRN (16:43)
[2018-07-17] MEDS ORDERED: Lidocaine 1% (PF) 30 ML VIAL SC PRN (16:43)
[2018-07-17] MEDS ORDERED: NS w/ Oxytocin 10 units 500 ML IV SCH (16:45)
--- NOTE | 2018-07-17 16:49 | PDOC.LDPN ---
Labor & Delivery Progress Note - Subjective Subjective: comfortable - Objective Vital signs reviewed and normal: yes General: NAD Uterine fundus: non tender Dilation: 8 Effacement: 75% Station: -2 FHT: category 2 [place] contractions every: not stephy for the past 20 minutes; prior to that every 10 minutes AROM: clear fluid - Assessment (1) Term Code(s): Z34.80 - ENCOUNTER FOR SUPRVSN OF NORMAL , UNSP TRIMESTER Current Visit: Yes Status: Acute Plan: labor augmentation, pitocin for augmentation -: 23 yo @ 37.6wks by LMP/1T US admitted for latent labor, with inadequate progression at this time. #Early Term, sIUP #Protracted Labor, inadequate contractions Plan: -Pitocin for augmentation; recheck cervix in two hours. Monitor strip; currently cat 2 with moderate variability.
[2018-07-17] MEDS ORDERED: Methylergonovine 0.2 MG/ML VIAL ONE (18:31)
[2018-07-17] MEDS ORDERED: Misoprostol 200 MCG TAB ONE (18:31)
[2018-07-17] MEDS ORDERED: Lanolin Ointment 7 GM TUBE TOP PRN (18:41)
[2018-07-17] MEDS ORDERED: Milk Of Magnesia 30 ML UDCUP PO PRN (18:41)
[2018-07-17] MEDS ORDERED: Bisacodyl 10 MG SUPP PR PRN (18:41)
[2018-07-17] MEDS ORDERED: Preparation H Ointment 28 GM TUBE PR PRN (18:41)
[2018-07-17] MEDS ORDERED: Methylergonovine 0.2 MG TAB PO PRN (18:41)
[2018-07-17] MEDS ORDERED: diphenhydrAMINE 25 MG CAP PO PRN (18:41)
[2018-07-17] MEDS ORDERED: Benzocaine/Menthol 20-0.5% 60 ML CAN TOP PRN (18:41)
[2018-07-17] MEDS ORDERED: NS / Oxytocin 40 units/1000ml 1,000 ML IV SCH (18:45)
--- NOTE | 2018-07-17 19:00 | PDOC.OPDEL ---
OB Operative/Delivery Note Delivery Dr/Surgeon: Marilee Foley Assist: Attending: Dr. Coy Pre-Delivery Diagnosis: active labor Procedure/Post Delivery Dx: spontaneous vaginal delivery Weeks gestation: 37 (37.6) Anesthesia: epidural - Findings A Sex: female - 1 min: 8 - 5 min: 9 - Additional Findings/Plan Placenta delivered: spontaneous Repaired Obstetrical Laceration: none Estimated blood loss: 500 Compilations/Other Findings: Delivering Physician: Dr. Fabiana Foley and Dr. Orlin Hunt Attending: Dr. Coy Procedure: Spontaneous Vaginal Delivery Anesthesia: epidural EBL:350 ml Pre-op Diagnosis: 1. Term intrauterine in labor Post-op Diagnosis: 1. Term intrauterine , delivered Indications: A 23y/o female presents in latent labor who progressed to active labor. Delivery Note: This is 23yo F @ 37.6wks who delivered a viable F infant at 1845. Following an uneventful antepartum course, a vigorous female was delivered over an intact perineum in the occipitoanterior position. Anterior Shoulder and then remainder of the body delivered. No nuchal cord. The head was held down and mouth and nares were bulb suctioned. Cord clamped (after delayed cord clamping) and cut and cord blood collected. Placenta delivered intact (in the [place] presentation) with a 3 vessel cord noted. Fundal massage was performed and the fundus was firm. The cervix and vagina were inspected and found to be free of lacerations. 800mg of cytotec was given VT for lower uterine segment bleeding with hemostasis following administration. Infant went to nursery in good condition for routine care. Apgars were 8/9 at 1 & 5 minutes, respectively. Patient tolerated delivery well and went to after routine recovery/care. Post delivery plan: routine recovery <Fabiana Foley - Last Filed: 07/17/18 19:10> Attending Addendum - Attending Addendum Date/Time: 07/17/182014 I personally supervised and assisted with delivery. <Leroy Coy - Last Filed: 07/17/18 20:16>
--- NOTE | 2018-07-17 19:36 | PDOC.EVN ---
Event Note - Event Note Event Note: OBGYN Faculty: Delivery notice: While I was attending to another emergent condition on the unit (PPH), this patent delivered without complication with the manager environmental services residents in attendence. Please see the resident notes and faculty attestation for that . I was not able to attend that delivery.
[2018-07-17] MEDS ORDERED: Misoprostol 200 MCG TAB PR SCH (20:00)
[2018-07-17] MEDS: NS w/ Oxytocin 10 units 500 ML IV SCH (21:29)
[2018-07-17] MEDS: Ferrous Sulfate 325 MG TAB PO SCH (21:44)
[2018-07-17] MEDS: Ibuprofen 800 MG TAB PO SCH (21:44)
[2018-07-17] MEDS: Docusate Calcium (SURFAK) 240 MG CAP PO SCH (21:44)
[2018-07-17] MEDS: Acetaminophen 325 MG TAB PO PRN (23:56)
--- NOTE | 2018-07-18 03:54 | PDOC.PP ---
Post Progress Note Post Day #: 1 Subjective: 23 yo -->2012 s/p yesterday on 07/18 @ ~1840. Pt with uncomplicated delivery and doing well this morning. She endorses some heart burn and pain in her belly and lower back. PO intake tolerated: yes Flatus: no Ambulation: no Vital Signs (12 hours) Temp Pulse Resp BP Pulse Ox 07/18/18 00:50 98.9 F 87 16 108/64 07/17/18 23:15 99.8 F H 84 18 103/53 L 07/17/18 22:15 99.7 F H 94 18 107/60 98 07/17/18 21:10 100.0 F H 91 18 108/63 99 Weight Weight 72.121 kg - Physical Examination General: NAD Cardiovascular: no m/r/g, RRR Respiratory: clear to auscultation bilaterally Abdominal: + bowel sounds Fundus firm & at: umbilicus -2 Neurological: no gross focal deficits Psychiatric: A&Ox3, normal affect Result Diagrams: 07/16/18 18:51 Additional Labs: Post Labs Blood Type O POSITIVE 07/16/18 18:51 Hep Bs Antigen Non-Reactive S/CO (NonReactive) 07/16/18 18:51 (1) Term Code(s): Z34.80 - ENCOUNTER FOR SUPRVSN OF NORMAL , UNSP TRIMESTER Status: Acute (2) (normal spontaneous vaginal delivery) Code(s): O80 - ENCOUNTER FOR FULL-TERM UNCOMPLICATED DELIVERY Status: Acute - Assessment/Plan 23 yo @ 37.6wks by LMP/1T US s/p on 07/17/18 @ 1837. #Early Term, sIUP # Plan: -routine pp care; continue ibuprofen 800mg q8h prn pain and tylenol 650mg q6h prn pain -monitor I/Os; encourage ambulation -pt tolerating normal diet -pt complaining of heart burn-->gave tums prn and ranitidine BID scheduled <Fabiana Foley - Last Filed: 07/18/18 04:29> Vital Signs (12 hours) Temp Pulse Resp BP Pulse Ox 07/18/18 16:00 99.1 F 93 20 115/72 97 07/18/18 11:52 97.9 F 100 20 108/63 07/18/18 07:58 99.4 F 85 20 107/53 L 98 Weight Weight 72.121 kg Result Diagrams: 07/18/18 04:20 Additional Labs: Post Labs Blood Type O POSITIVE 07/16/18 18:51 Hep Bs Antigen Non-Reactive S/CO (NonReactive) 07/16/18 18:51 <John Gibson - Last Filed: 07/18/18 19:35> Attending Addendum - Attending Addendum Date/Time: 07/18/181933 I evaluated the patient and discussed the management with Dr. Foley. I agree with the Assessment and Plan documented above. <John Gibson - Last Filed: 07/18/18 19:35>
[2018-07-18] MEDS ORDERED: Calcium Carbonate 500 MG ChewTAB PO SCH (04:27)
[2018-07-18] MEDS ORDERED: Calcium Carbonate 500 MG ChewTAB PO PRN (04:27)
[2018-07-18] MEDS ORDERED: Acetaminophen 1,000 MG in Premix Bag 1 BAG IVPB SCH (05:00)
[2018-07-18 05:14] LABS: Hemoglobin 11.4 g/dL (12.0-16.0); Mean Corpuscular HGB CONC 34.4 g/dL (32.0-36.0); Mean Corpuscular Hemoglobin 33.8 pg (27.0-31.0); Mean Corpuscular Volume 98.2 fL (78.0-98.0); Platelet Count 201 thou/uL (130-400); RBC Distribution Width 12.9 % (11.5-14.5); Red Blood Cell (RBC) Count 3.39 mill/uL (4.20-5.40); White Blood Cell (WBC) Count 8.2 thou/uL (4.8-10.8)
[2018-07-18] MEDS: Ibuprofen 800 MG TAB PO SCH ×3 (06:11→21:55)
[2018-07-18] MEDS: NS w/ Oxytocin 10 units 500 ML IV SCH ×3 (07:54→14:23)
[2018-07-18] MEDS ORDERED: Ferrous Sulfate 325 MG TAB PO SCH (08:00)
[2018-07-18] MEDS: Ferrous Sulfate 325 MG TAB PO SCH ×3 (08:36→08:37)
[2018-07-18] MEDS: Docusate Calcium (SURFAK) 240 MG CAP PO SCH ×2 (08:36→21:55)
[2018-07-18] MEDS: Famotidine 20 MG TAB PO SCH ×2 (08:36→21:55)
[2018-07-18] MEDS: Prenatal Vitamin 1 TAB PO SCH (08:36)
[2018-07-18] MEDS ORDERED: Adacel (T-DAP) 0.5 ML SYRINGE IM ONE (09:00)
[2018-07-18] MEDS ORDERED: HYDROcodone/Acetaminophen 5/325 mg Tablet PO SCH (11:45)
[2018-07-18] MEDS: Acetaminophen 325 MG TAB PO PRN ×2 (16:47→20:27)
[2018-07-18] MEDS ORDERED: PROVENTIL INHALER 6.7 G (200 INHALATIONS) INH PRN (22:56)
[2018-07-19] MEDS ORDERED: HYDROcodone/Acetaminophen 5/325 mg Tablet PO PRN (00:38)
[2018-07-19] MEDS ORDERED: Melatonin 3 MG TAB PO PRN (00:38)
[2018-07-19] MEDS: Acetaminophen 325 MG TAB PO PRN (01:17)
[2018-07-19] MEDS: Ibuprofen 800 MG TAB PO SCH ×2 (05:54→13:02)
[2018-07-19] MEDS: Ferrous Sulfate 325 MG TAB PO SCH (08:55)
[2018-07-19] MEDS: Famotidine 20 MG TAB PO SCH (08:55)
[2018-07-19] MEDS: Docusate Calcium (SURFAK) 240 MG CAP PO SCH (08:55)
[2018-07-19] MEDS: Prenatal Vitamin 1 TAB PO SCH (08:55)
[2018-07-19] MEDS ORDERED: Acetaminophen/Codeine 30-300mg Tablet PO PRN (09:50)
--- NOTE | 2018-07-19 09:54 | PDOC.PP ---
Post Progress Note Post Day #: 2 Subjective: Feeling well this morning. Ready for discharge today. PO intake tolerated: yes Flatus: yes Ambulation: yes Vital Signs (12 hours) Temp Pulse Resp BP Pulse Ox 07/19/18 08:00 98.4 F 63 14 95/51 L 100 07/18/18 23:49 99.4 F Weight Weight 72.121 kg - Physical Examination General: NAD Cardiovascular: no m/r/g, RRR Respiratory: clear to auscultation bilaterally Abdominal: + bowel sounds, lochia (scant), no distention, appropriately TTP Fundus firm & at: umbilicus Neurological: no gross focal deficits Psychiatric: A&Ox3, normal affect Result Diagrams: 07/18/18 04:20 Additional Labs: Post Labs Blood Type O POSITIVE 07/16/18 18:51 Hep Bs Antigen Non-Reactive S/CO (NonReactive) 07/16/18 18:51 (1) Primigravida in third trimester Code(s): Z34.03 - ENCNTR FOR SUPRVSN OF NORMAL FIRST PREG, THIRD TRIMESTER Status: Acute Comment: Induction for head sparing IUGR. S/p 4 cytotec and cervidil. Late decel with minimal variability. FSE placed. Irregularity in contractions. Baby ROP. (2) Asthma Code(s): J45.909 - UNSPECIFIED ASTHMA, UNCOMPLICATED Status: Acute (3) Bipolar disorder Code(s): F31.9 - BIPOLAR DISORDER, UNSPECIFIED Status: Acute - Assessment/Plan 23 yo now 2011 s/p 1. PPD #2 - Plan for d/c today 2. Asthma - Inhaler ordered, will send refill 3. Bipolar d/o - Recommend f/u within 1 week w/ Dr. Reilly to discuss pharmacotherapy Discharge today <Lianne Zazueta - Last Filed: 07/19/18 09:53> Weight Weight 72.121 kg Result Diagrams: 07/18/18 04:20 Additional Labs: Post Labs Blood Type O POSITIVE 07/16/18 18:51 Hep Bs Antigen Non-Reactive S/CO (NonReactive) 07/16/18 18:51 <John Gibson - Last Filed: 07/20/18 10:28> Attending Addendum - Attending Addendum Date/Time: 07/20/18 1027 I evaluated the patient and discussed the management with Dr. Zazueta. I agree with the History, Examination, Assessment and Plan documented above. <John Gibson - Last Filed: 07/20/18 10:28>
[2018-07-19 12:31] VITALS: BP 123/61; TEMP 97.8
== END 2018-07-19 14:30 | disposition home or self-care (01) | DRG 807 ==
LOC: L&D/OP 13:01 → L&D 18:26 → 3SE 07-17 21:13
PROVIDERS: ADMIT Obstetrics & Gynecology; ATTEND Obstetrics & Gynecology
PROC: 10E0XZZ Delivery of Products of Conception, External Approach (ICD-10-PCS; principal; 2018-07-17)
PROC: 4A1H74Z Monitoring of Products of Conception, Cardiac Electrical Activity, Via Natural or Artificial Opening (ICD-10-PCS; 2018-07-17)
PROC: 10H073Z Insertion of Monitoring Electrode into Products of Conception, Via Natural or Artificial Opening (ICD-10-PCS; 2018-07-17)
DX: O63.0 Prolonged first stage (of labor) (principal); Z37.0 Single live birth; O76 Abnormality in fetal heart rate and rhythm complicating labor and delivery; Z3A.37 37 weeks gestation of pregnancy; O26.893 Other specified pregnancy related conditions, third trimester; F31.9 Bipolar disorder, unspecified; J45.909 Unspecified asthma, uncomplicated
CPT/HCPCS: 36415; 51702; 80306; 85027; 86780; 86850; 86900; 86901; 87340; 87389; 90715; 99285; J0131; J2001; J2210; J2270; J2405

== ENCOUNTER 2018-12-31 15:16 | Emergency (ER) | payer OTHER, SELFPAY ==
[2018-12-31 16:07] LABS: #Basophils 0.1 thou/uL (0.0-0.2); #Monocytes 0.9 thou/uL (0.11-0.59); #Neutrophils 3.9 thou/uL (1.40-6.50); %Basophils 1.4 % (0.0-1.0); %Eosinophils 0.3 % (0.0-10.0); %Lymphocytes 28.8 % (21.0-51.0); %Monocytes 13.1 % (0.0-10.0); %Neutrophils 56.4 % (42.0-75.0); Hemoglobin 12.6 g/dL (12.0-16.0); Mean Corpuscular HGB CONC 34.2 g/dL (32.0-36.0); Mean Corpuscular Volume 90.9 fL (78.0-98.0); Mean Platelet Volume 6.7 fL (7.4-10.4); Platelet Count 292 thou/uL (130-400); RBC Distribution Width 11.5 % (11.5-14.5); Red Blood Cell (RBC) Count 4.05 mill/uL (4.20-5.40)
[2018-12-31 16:27] LABS: ALT (SGPT) 17 U/L (8-55); AST (SGOT) 19 U/L (5-34); Albumin 4.5 g/dL (3.5-5.0); Alkaline Phosphatase 63 U/L (40-150); Anion Gap 12 mmol/L (10-20); BUN (Urea Nitrogen) 6 mg/dL (7.0-18.7); Bilirubin, Total 0.9 mg/dL (0.2-1.2); Calc. Creatinine Clearance 0 mL/min (70-130); Calcium 9.5 mg/dL (7.8-10.44); Carbon Dioxide 29 mmol/L (22-29); Chloride 97 mmol/L (98-107); Estimated GFR-MDRD Greater than 90; Globulin 3.9 g/dL (2.4-3.5); Glucose 104 mg/dL (70-105); Potassium 3.2 mmol/L (3.5-5.1); Protein, Total 8.4 g/dL (6.0-8.3); Sodium 135 mmol/L (136-145)
[2018-12-31 16:33] LABS: Bilirubin Small (Negative); Blood, Urine Moderate (Negative); Clarity CLEAR (Clear); Glucose, Urine (Dipstick) Negative (Negative); Leukocyte Large (Negative); Nitrite Negative (Negative); Protein, Urine (Dipstick) 100 mg/dL (Neg-Trace); Specific Gravity, Urine 1.019 (1.002-1.036); Urobilinogen > or = 8.0 mg/dL (0.2-1.0); pH, Urine 6.5 (5.0-9.0)
[2018-12-31 16:35] LABS: Bacteria/HPF None Seen HPF (None Seen); Pregnancy Test - Urine (BHCG) Negative (Negative); Pregu Control Background? CLEAR/WHITE (CLR/WHITE); Pregu Control Bar Appear? YES (CONTROL BAR); RBC/HPF 21-50 HPF (0-3); Specific Gravity 1.019 (1.002-1.036); Squamous Epithelial 0-3 HPF (0-3)
[2018-12-31 16:38] LABS: Pathc Cast-AUWi Flag 11.01 (0-2.49); Yeast-AUWi Flag 35.3 (0-25.0)
[2018-12-31 16:46] LABS: Hyaline Casts/LPF 4-6 HYALINE CAST LPF (0-3 Hyaline); Other Casts/LPF None Seen LPF (0-3 Hyaline); Trichomonas/HPF 1+ HPF (None Seen)
[2018-12-31] MEDS ORDERED: cefTRIAXone\\ROCEPHIN 250 MG VIAL ONE (18:34)
[2018-12-31] MEDS ORDERED: Ibuprofen 200 MG TAB ONE (18:34)
[2018-12-31] MEDS ORDERED: Ondansetron ODT 4 MG TAB ONE (18:34)
[2018-12-31] MEDS ORDERED: Lidocaine 1% PF 5 ML VIAL ONE (18:34)
[2018-12-31] MEDS ORDERED: Azithromycin 250 MG TAB ONE (18:34)
== END 2018-12-31 18:48 | disposition home or self-care (01) ==
LOC: ERS 15:16
DX: A59.9 Trichomoniasis, unspecified (principal); N39.0 Urinary tract infection, site not specified; F31.9 Bipolar disorder, unspecified; J45.909 Unspecified asthma, uncomplicated; F20.9 Schizophrenia, unspecified; D64.9 Anemia, unspecified
CPT/HCPCS: 36415; 80053; 81003; 81015; 81025; 85025; 96372; J0696; J2001; Q0162

== ENCOUNTER 2019-07-01 19:40 | Emergency (ER) | payer OTHER, SELFPAY ==
[2019-07-01 22:14] LABS: Pregnancy Test - Urine (BHCG) POSITIVE (Negative); Pregu Control Background? CLEAR/WHITE (CLR/WHITE); Pregu Control Bar Appear? YES (CONTROL BAR); Specific Gravity 1.027 (1.002-1.036)
[2019-07-01 22:16] LABS: Bacteria/HPF 4+ HPF (None Seen); Bilirubin Negative (Negative); Blood, Urine Negative (Negative); Clarity Turbid (Clear); Glucose, Urine (Dipstick) Normal (Negative); Leukocyte 500 Leu/uL (Negative); Nitrite 2+ (Negative); Protein, Urine (Dipstick) 20 mg/dL (Neg-Trace); Urobilinogen Normal mg/dL (Less than 2); WBC/HPF Greater than 50 HPF (0-3)
[2019-07-04 00:59] LABS: Chlamydia by PCR Not Detected (NotDetected); GC by PCR Not Detected (NotDetected)
== END 2019-07-01 23:48 | disposition home or self-care (01) ==
LOC: ERS 19:40
DX: O23.42 Unspecified infection of urinary tract in pregnancy, second trimester (principal); O23.592 Infection of other part of genital tract in pregnancy, second trimester; O99.512 Diseases of the respiratory system complicating pregnancy, second trimester; J45.909 Unspecified asthma, uncomplicated; F31.9 Bipolar disorder, unspecified; O99.342 Other mental disorders complicating pregnancy, second trimester; F20.9 Schizophrenia, unspecified; Z79.899 Other long term (current) drug therapy; Z3A.16 16 weeks gestation of pregnancy
CPT/HCPCS: 81003; 81015; 81025; 87480; 87491; 87510; 87591; 87660; 99283

== ENCOUNTER 2019-07-29 12:58 | Observation (INO) | payer OTHER ==
[2019-07-29] MEDS ORDERED: Misoprostol 200 MCG TAB ONE (13:45)
[2019-07-29] MEDS ORDERED: Carboprost 250 MCG/ML AMP ONE (13:45)
[2019-07-29] MEDS ORDERED: NS / Oxytocin 40 units/1000ml 1,000 ML ONE (13:45)
[2019-07-29] MEDS ORDERED: Methylergonovine 0.2 MG/ML VIAL ONE (13:45)
[2019-07-29] MEDS ORDERED: Morphine 4 MG/ML VIAL ONE (13:47)
[2019-07-29] MEDS ORDERED: hydrALAZINE 20 MG/ML VIAL SLOW IVP PRN (13:48)
[2019-07-29] MEDS ORDERED: Lidocaine 1% (PF) 30 ML VIAL SC PRN (13:48)
[2019-07-29] MEDS ORDERED: NS / Oxytocin 40 units/1000ml 1,000 ML IV PRN (13:48)
[2019-07-29] MEDS ORDERED: Promethazine HCl 25 MG/ML VIAL IM PRN (13:48)
[2019-07-29] MEDS ORDERED: Ondansetron PF 4 MG/2 ML Vial IVP PRN (13:48)
[2019-07-29 14:04] LABS: Hemoglobin 12.2 g/dL (12.0-16.0); Mean Corpuscular HGB CONC 34.6 g/dL (32.0-36.0); Mean Corpuscular Hemoglobin 32.2 pg (27.0-31.0); Mean Corpuscular Volume 93.1 fL (78.0-98.0); Mean Platelet Volume 6.7 fL (7.4-10.4); Platelet Count 298 thou/uL (130-400); RBC Distribution Width 11.9 % (11.5-14.5); Red Blood Cell (RBC) Count 3.79 mill/uL (4.20-5.40); White Blood Cell (WBC) Count 10.9 thou/uL (4.8-10.8)
--- NOTE | 2019-07-29 14:31 | PDOC.OPDEL ---
OB Operative/Delivery Note Delivery Dr/Surgeon: Florian Coy Pre-Delivery Diagnosis: other (18 week pre-viable spontaneous vaginal delivery.) Procedure/Post Delivery Dx: spontaneous vaginal delivery Weeks gestation: 18 (by 1st trimester ultrasound) Anesthesia: none - Additional Findings/Plan Placenta delivered: spontaneous Repaired Obstetrical Laceration: none Estimated blood loss: 627ml (QBL) Compilations/Other Findings: Patient present to L&D at 18 weeks EGA by 1 trimester u/s with vaginal bleeding and cramping. The cramping began last night, and the bleeding this morning. I came when called and found nursing staff attending to her, IV access intact. Dr Dixon was performing a bedside ultrasound demonstrating the fetus in the vagina. This was confirmed by a manual vaginal exam. Amnion intact. Bed was set up for imminent delivery. [place] team was called but did not attend given the established pre-viable EGA of the fetus. Shortly thereafter, the amnion and fetus delivered. Amnion spontaneously ruptured just before delivery. Clear fluid. No foul odor noted. Fetus grossly normal. Male. Umbilical cord clamped and cut. Fetus wrapped and given to mother to hold. Pitocin initiated. Brendan experienced pain and was given 4mg morphine IV. Several minutes later the placenta delivered intact spontaneously. Uterus was noted to be firm. Bleeding abated. ROutine labs, with urine drug screen and GC/ Chlamydia PCR ordered. I spent several minutes comforting and counselling Brendan and family regarding details and possible causes of loss. All questions addressed. Placenta to path. Post delivery plan: routine recovery
[2019-07-29 14:36] LABS: HBSAg Index 0.45 S/CO (0-0.99); Hep B Surf Ag Non-Reactive S/CO (NonReactive); Syphilis Antibody Nonreactive (Nonreactive); Syphilis Antibody Index 0.05 S/CO (<1.00 Non-Reactive)
--- NOTE | 2019-07-29 14:39 | PDOC.FPROB ---
Addendum entered and electronically signed by Carmen Guerrero MD 07/29/19 19:00 : additional problem for A/P: 8. mild asthma: Aware, uses inhaler PRN. No hemabate should patient start bleeding again. Original Note: FMR OB H&P: HPI - History of Present Illness Chief Complaint: bleeding and contractions Indentification: History of Present Illness: 24YO @ 17.5 WGA by a LMP c/w 11.6 week sono who presented to L&D with a CC of vaginal bleeding with associated painful contractions. Patient and her family report that she began leaking fluid last night so much that she had to wear a pad & change it twice. She was also stephy on and off starting yesterday but reports the pain was not that bad so she was able to go to sleep. However, this morning around ~11:00 she noticed some blood on a pad when she went to the bathroom & the contractions gradually got closer together and stronger so she decided to come to L&D for evaluation. She reports the contractions became very severe on her way to the hospital. Upon questioning she reports being diagnosed with a UTI ~3 weeks ago but could not afford the abx sent in for her infection so it has yet to be treated. Per chart review she was + for BV & trichomonas on 07/07/19 & scripts were sent for therapy. 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 Also denies any fever/chills and endorses some nausea but no vomiting/diarrhea or constipation. Primary Care Physician: SMILEY Braden/Estrella FMR OB H&P: Current - Care : 4 Para: 2011 Gestational age: 17.5 WGA Due date: 01/01/2020 Dating Criteria: LMP c/w 11.6 sono Course/Complications: h/o SAB x1, h/o IUGR/SGA fetus x2, short pregnancty interval <1 year, h/o BV & trichonomas in current FMR OB H&P: History - Past Medical History PMH: bipolar disorder, mild intermittent asthma, short inter- interval <1 year - OB History OB History: #1: SAB @ 4 WGA on 12/10/14 #2: @ 38 WGA w/ IUGR & maternal fever on 10/26/16 #3: @ 37 WGA 07/17/2018 - Surgical History Sx History: wisdom teeth extraction in 2011 - Social History Social History: Marijuana use prior to . No EtOH or tobacco. - Family History Family History: Mother- DM & HTN FMR OB H&P: Medications - Current Home Medications: Medication Instructions Recorded Confirmed Type Albuterol Sulfate [Proventil Hfa] 1 puff INH Q4H PRN #1 inh 07/19/18 07/29/19 Rx Allergies/Adverse Reactions: Allergies Allergy/AdvReac Type Severity Reaction Status Date / Time divalproex sodium Allergy Severe Anaphylaxis Verified 07/16/18 13:48 [From Depakote] peanut Allergy Severe Short of Verified 07/16/18 13:48 Breath FMR OB H&P: ROS - Review of Systems General: denies: fever/chills, fatigue Eyes: denies: eye pain, vision changes ENT: denies: nasal congestion, rhinorrhea, sinus pain/pressure, sore throat Cardiovascular: denies: chest pain, palpitation Respiratory: denies: cough, shortness of breath Gastrointestinal: reports: abdominal pain, cramping, nausea. denies: vomiting, diarrhea, constipation Genitourinary (Female): reports: vaginal bleeding, contractions. denies: dysuria, hematuria, vaginal discharge Musculoskeletal: denies: pain, arthritis/arthralgias Neurologic: denies: syncope, headache Integumentary: denies: itching, rash Psychological: reports: other (bipolar disorder) FMR OB H&P: Vital Signs - Heart Tones [place] contractions every: regular painful contractions FMR OB H&P: Physical Exam - Physical Exam General: NAD, awake, alert and oriented HEENT: normocephalic and atraumatic, grossly normal vision Neck: supple, FROM Heart: RRR, normal S1/S2 General: CTAB, no respiratory distress, good air movement, no rales/rhonchi, no wheezing, no retractions Abdomen: soft, gravid Musculoskeletal: normal gait and station, FROM in all four extremities Neurological: cranial nerves II through XII intact, sensation to pain,touch and proprioception grossly normal Skin: no rash, good tugor, capillary refill <2 seconds, no jaundice Lymphatic: no unusual bruising or bleeding, no purpura, no petechia Psychiatric: intact recent and remote memory, other (mood very labile) - Pelvic Exam Vulva: normal hair distribution, appropriate andreia stage Deviation from normal: active gross significant vaginal bleeding on presentation FMR OB H&P: Results - Labs Lab results: Laboratory Results - last 24 hr 07/29/19 13:40 WBC 10.9 H RBC 3.79 L Hgb 12.2 Hct 35.3 L MCV 93.1 MCH 32.2 H MCHC 34.6 RDW 11.9 Plt Count 298 MPV 6.7 L FMR OB H&P: A/P - Problem List (1) delivery, delivered Current Visit: Yes Status: Acute Code(s): O60.10X0 - LABOR W DELIVERY, UNSP TRIMESTER, UNSP (2) Asthma Current Visit: Yes Status: Chronic Code(s): J45.909 - UNSPECIFIED ASTHMA, UNCOMPLICATED (3) Bipolar disorder Current Visit: Yes Status: Chronic Code(s): F31.9 - BIPOLAR DISORDER, UNSPECIFIED Qualifiers: Current bipolar episode type: mixed Psychotic features: without psychotic features (4) Current Visit: Yes Status: Resolved Qualifiers: Weeks of gestation: 17 weeks Qualified Code(s): Z3A.17 - 17 weeks gestation of Disposition: 24YO @ 17.5 WGA by LMP c/w 11.6 week sono who presented to L&D with active vaginal bleeding and regular painful contractions who precipitously delivered a pre-viable male shortly after her arrival to the floor. 1. s/p of pre-viable fetus @ 17.5 WGA: - Patient was actively bleeding & precipitously delivered a male shortly after her arrival. - Placenta sent for path and GC/Chlamydia swab was obtained immediately following delivery. Will also obtain a UA, UDS, & VP3 swab as well. - [employer] and CM consulted as patient indicated she wants to bury the fetus and may need financial assistance in order to do that. - OB admission labs pending. 2. Vaginal bleeding: - 2 large bore IV access sites were obtained & type and cross of 2 units ordered ; however, QBL for delivery just under 700mL & bleeding slowed significantly following delivery. - VS stable. Will continue to monitor & transfuse PRN. - Admission H/H pending. 3. h/o BV & trichomonas infection this : - Likely these infections went untreated and could be the cause of her delivery. Will rescreen this admission & treat PRN based in results. 4. h/o 2 IUGR/SGA infants: - Aware. Patient had not yet had her anatomy sono for this prior to delivery. 5. Bipolar disorder: - Aware, not currently on any meds. 6. h/o SAB x1: - Aware 7. short interval: - Aware, <1 year. Dispo: Will admit to L&D with plans for observation for at least 4 hours & possible d/c home tonight vs. tomorrow AM pending clinical course. Discussion: Date/Time: 07/29/19 3457 This H&P was discussed with Dr. Coy who agrees with the above documentation and plan. Addendum - Attending - Attending Attestation Date/Time: 07/30/19 0168 I personally evaluated the patient and discussed the management with Dr. Guerrero at time of admission. I agree with the History, Examination, Assessment and Plan documented above with any addition or exceptions noted below.
[2019-07-29 17:27] VITALS: BMI 21.6
[2019-07-29] MEDS ORDERED: Zolpidem Tartrate 5 MG TAB PO PRN (18:56)
[2019-07-29] MEDS ORDERED: Milk Of Magnesia 30 ML UDCUP PO PRN (18:56)
[2019-07-29] MEDS ORDERED: Misoprostol 200 MCG TAB VAG PRN (18:56)
[2019-07-29] MEDS ORDERED: Methylergonovine 0.2 MG TAB PO PRN (18:56)
[2019-07-29] MEDS ORDERED: Bisacodyl 10 MG SUPP PR PRN (18:56)
[2019-07-29] MEDS ORDERED: Methylergonovine 0.2 MG/ML VIAL IM PRN (18:56)
[2019-07-29] MEDS ORDERED: Ibuprofen 800 MG TAB PO SCH ×2 (21:15→22:00)
[2019-07-29] MEDS ORDERED: traMADol HCl 50 MG TAB PO PRN (23:45)
[2019-07-30] MEDS ORDERED: Acetaminophen 500 MG TAB PO PRN (05:35)
--- NOTE | 2019-07-30 05:48 | PDOC.OBPPN ---
FMR OB PN: Subj - Interval History Hospital Day: 2 Day: 1 Chief Complaint: insomnia Indentification: Interval History: Patient reports trouble sleeping overnight but less cramping & bleeding. FMR OB PN: Obj - Maternal Vital signs: BP: 92/72 HR: 64 - Urine output I&O: 07/28/19 07/29/19 07/30/19 06:59 06:59 06:59 Output Total 677 Balance -677 - Lochia Lochia: minimal bloody lochia noted on pad - Pain Management Intervention: oral medication FMR OB PN: Exam - Physical Exam General: awake, alert and oriented Deviation from normal: tearful on exam HEENT: normocephalic and atraumatic, grossly normal vision, grossly normal hearing Neck: supple, FROM Heart: RRR, normal S1/S2, no murmurs/rubs/gallops General: CTAB, no respiratory distress, good air movement, no rales/rhonchi, no wheezing Abdomen: soft, other (appropriately tender w/ fundus firm below the umbilicus) Musculoskeletal: FROM in all four extremities Neurological: cranial nerves II through XII intact, no focal deficit Skin: no rash, good tugor Lymphatic: no unusual bruising or bleeding Psychiatric: intact recent and remote memory, other (depressed mood & affect) - Pelvic Exam : normal lochia FMR OB PN: Data - Labs Lab results: Laboratory Results - last 24 hr 07/29/19 07/29/19 07/29/19 13:40 13:40 13:40 WBC 10.9 H RBC 3.79 L Hgb 12.2 Hct 35.3 L MCV 93.1 MCH 32.2 H MCHC 34.6 RDW 11.9 Plt Count 298 MPV 6.7 L Syphilis IgG/IgM Ab Nonreactive Hep Bs Antigen Non-Reactive Blood Type Antibody Screen Crossmatch 07/29/19 14:04 WBC RBC Hgb Hct MCV MCH MCHC RDW Plt Count MPV Syphilis IgG/IgM Ab Hep Bs Antigen Blood Type O POSITIVE Antibody Screen NEGATIVE Crossmatch See Detail FMR OB PN: A/P - Problem List (1) delivery, delivered Status: Acute Code(s): O60.10X0 - LABOR W DELIVERY, UNSP TRIMESTER, UNSP (2) Asthma Status: Chronic Code(s): J45.909 - UNSPECIFIED ASTHMA, UNCOMPLICATED (3) Bipolar disorder Status: Chronic Code(s): F31.9 - BIPOLAR DISORDER, UNSPECIFIED Qualifiers: Current bipolar episode type: mixed Psychotic features: without psychotic features (4) Status: Resolved Qualifiers: Weeks of gestation: 17 weeks Qualified Code(s): Z3A.17 - 17 weeks gestation of Disposition: 24YO G4P now 2111 who is PP day #1 s/p of a pre-viable fetus @ 17.5 WGA. 1. s/p of pre-viable fetus @ 17.5 WGA: - VS stable overnight but patient still very depressed on exam this AM. Did not sleep at all overnight. Has /family support in room. Desires counseling referral. - To investigate potential causes for delivery placenta was sent for path and GC/Chlamydia swab was obtained immediately following delivery. UA, UDS , & VP3 swabs not yet collected. - CM re-consulted to assist w/ counseling referral. - Will try hydroxyzine for sleep as benadryl, ambien and melatonin had no effects overnight. 2. Vaginal bleeding: improved - ~677mL blood loss since delivery. - VS remain stable w/ trace bloody lochia on exam. 3. h/o BV & trichomonas infection this : - Likely these infections went untreated and could be the cause of her delivery. Will obtain VP3 prior to d/c & treat PRN. 4. h/o 2 IUGR/SGA infants: - Aware. Patient did not have her anatomy sono for this prior to delivery. 5. Bipolar disorder: - Aware, not currently on any meds. - Will refer to counseling/mental health facility prior to discharge. 6. h/o SAB x1: - Aware 7. short interval: - Aware, <1 year. 8. asthma: - Aware, continue PRN albuterol. Dispo: Will continue to monitor closely today & attempt to allow patient to rest & get set up with counseling w/ likely d/c home later today vs. early tomorrow. Discussion: Date/Time: 07/30/19 2924 This H&P was discussed with Dr. Coy who agrees with the above documentation and plan. Addendum - Attending - Attending Attestation Date/Time: 07/30/19 1324 I personally evaluated the patient and discussed the management with Dr. Guerrero I agree with the History, Examination, Assessment and Plan documented above with any addition or exceptions noted below. Brendan is stable for discharge.
[2019-07-30] MEDS: Lactated Ringer's 1,000 ML IV SCH ×2 (05:56→09:57)
[2019-07-30] MEDS: Docusate Calcium (SURFAK) 240 MG CAP PO SCH ×2 (05:56→09:58)
[2019-07-30] MEDS ORDERED: Ibuprofen 800 MG TAB PO SCH (06:00)
[2019-07-30] MEDS ORDERED: hydrOXYzine 25 MG TAB PO PRN (07:01)
[2019-07-30] MEDS ORDERED: PROVENTIL INHALER 6.7 G (200 INHALATIONS) INH PRN (07:18)
[2019-07-30] MEDS ORDERED: Ferrous Sulfate 325 MG TAB PO SCH (08:00)
[2019-07-30] MEDS ORDERED: Adacel (T-DAP) 0.5 ML SYRINGE IM ONE (09:00)
[2019-07-30] MEDS ORDERED: Prenatal Vitamin 1 TAB PO SCH (09:00)
[2019-07-30 12:11] LABS: Bacteria/HPF 4+ HPF (None Seen); Bilirubin Negative (Negative); Blood, Urine 3+ (Negative); Clarity Extra Turbid (Clear); Glucose, Urine (Dipstick) Normal (Negative); Leukocyte 500 Leu/uL (Negative); Nitrite Negative (Negative); Protein, Urine (Dipstick) 30 mg/dL (Neg-Trace); RBC/HPF 21-50 HPF (0-3); Urobilinogen Normal mg/dL (Less than 2); WBC/HPF Greater than 50 HPF (0-3)
[2019-07-30 12:13] LABS: Urine Culture Reflex No No
[2019-07-30 12:14] LABS: Amphetamine Not Detected (NotDetected); Barbiturates Screen Not Detected (NotDetected); Benzodiazepine Screen Not Detected (NotDetected); Cocaine Metabolite Screen Not Detected (NotDetected); Medtox Control Line Valid? VALID (VALID); Medtox Reader # READER 4; Methadone Not Detected (NotDetected); Methamphetamine Not Detected (NotDetected); Opiate Screen Not Detected (NotDetected); Oxycodone Screen Not Detected (NotDetected); Phencyclidine (PCP) Not Detected (NotDetected); THC/Cannabinoid Screen Detected (NotDetected); Tricyclic Screen Not Detected (NotDetected)
[2019-07-31 01:25] LABS: Chlamydia by PCR Not Detected (NotDetected); GC by PCR Not Detected (NotDetected)
--- NOTE | 2019-07-31 13:22 | DIS ---
DATE OF ADMISSION: 07/29/2019 DATE OF DISCHARGE: 07/30/2019 RESIDENT: Carmen Guerrero MD ADMITTING ATTENDING: Dr. Leroy Coy DISCHARGE ATTENDING: Dr. Leroy Coy CONSULTS: None. PROCEDURES: Spontaneous vaginal delivery on 07/29/19. PRIMARY DIAGNOSES: 1. delivery of a previable male at 17.5 weeks gestational age. 2. Suspected placental abruption. 3. Possible acute cystitis. 4. Cannabis use in . SECONDARY DIAGNOSES: 1. Bipolar disorder. 2. Asthma. 3. h/o bacterial vaginosis and trichomonas in DISCHARGE MEDICATIONS: 1. Acetaminophen 1 g p.o. q.8 hours as needed. 2. vitamins 1 tablet p.o. daily, #30. 3. Ibuprofen 800 mg q.8 hours as needed, #21. 4. Proventil HFA 1 puff inhaled q.4 hours as needed. 5. Macrobid 100 mg p.o. q.12 hours b.i.d. for 10 days. DISCONTINUED MEDICATIONS: None. HOSPITAL COURSE: The patient is a 24-year-old G4, P2012 who presented to labor and delivery at reportedly 31 weeks gestational age with a chief complaint of vaginal bleeding with associated painful contractions. Of note, the patient has a past medical history significant for bipolar disorder and cannabis use in , and per chart review and urgent bedside sonogram, was confirmed to be at approximately 17.5 weeks gestational age, at the time of presentation. On presentation, the patient was noted to be in active labor with significant vaginal bleeding and the bed was immediately set up for eminent delivery. Shortly thereafter, a previable male fetus, which appeared grossly normal, was delivered which was quickly followed by the placenta which was noted to be intact and sent for pathologic analysis. Following delivery, the uterus was noted to be firm, and bleeding quickly abated, and routine labs including HIV, RPR, GC/Chlamydia, urinalysis and a UDS were ordered. All labs were noted to be within normal limits with the exception of the patient's UDS which was + for marijuana and the UA which will be described in more detail below. Following delivery the patient was monitored closely overnight & case Management was consulted to assist the patient with making arrangements and establishing with a counselor and/or support group in light of her recent loss. After ~24 hours of monitoring the patient was cleared for discharge home with instructions to follow up with the clinic within 14 days and [facility] within 3 to 4 weeks or sooner to establish care with a primary care physician. Of note, in obtaining a history from the patient, she reported being diagnosed with a urinary tract infection in the emergency department a few weeks prior to presentation. However, per chart review, it was noted that she tested positive for both Trichomonas and BV as well as a UTI. The patient, however, reported that she was unable to afford her prescriptions and these infections were therefore never treated. A UA was not obtained until just prior to the patient leaving the premises as she refused a straight cath sample on admission. Therefore, her UA was a plain voided sample done and was notable for 3+ blood, 500 leukocyte esterase, 21 to 50 RBCs, greater than 50 WBCs, 11 to 20 squamous, and 4+ bacteria making it very reliable for the diagnosis of a UTI. A VP3 was unable to be obtained before the patient left the premises to assess the status of her vaginal infections. However, on a follow-up phone call, the patient did endorse persistent urinary frequency and urgency despite a negative ROS on admission, so a 5-day course of Macrobid and a 7 day course of metronidazole were sent to the pharmacy. The patient was also given advice to seek immediate medical attention should she develop fever, chills, flank pain and/or nausea or vomiting, and to have her partner tested for and treated for any STIs to prevent re- infection. DISPOSITION: Stable. DISCHARGE INSTRUCTIONS: 1. Location: Home. 2. Diet: Regular diet, no restrictions. 3. Activity, pelvic rest for 6 weeks, otherwise unrestricted. 4. Follow-up: The patient was instructed to follow up at [facility] within 2 weeks of discharge and [place] [facility] physicians within 3 to 4 weeks or sooner, to establish care with a primary care physician. Job ID: [id number]
== END 2019-07-30 12:28 | disposition home health service (06) ==
LOC: L&D/OP 12:58 → L&D 13:51
PROVIDERS: ADMIT Student in an Organized Health Care Education/Training Program; ATTEND Family Medicine
PROC: 10E0XZZ Delivery of Products of Conception, External Approach (ICD-10-PCS; principal; 2019-07-29)
DX: O60.12X0 Preterm labor second trimester with preterm delivery second trimester, not applicable or unspecified (principal); O99.344 Other mental disorders complicating childbirth; F31.9 Bipolar disorder, unspecified; O99.52 Diseases of the respiratory system complicating childbirth; J45.20 Mild intermittent asthma, uncomplicated; O75.3 Other infection during labor; B96.89 Other specified bacterial agents as the cause of diseases classified elsewhere; O98.32 Other infections with a predominantly sexual mode of transmission complicating childbirth; A59.01 Trichomonal vulvovaginitis; O99.324 Drug use complicating childbirth; F12.90 Cannabis use, unspecified, uncomplicated; O99.354 Diseases of the nervous system complicating childbirth; G47.00 Insomnia, unspecified; Z3A.17 17 weeks gestation of pregnancy; Z37.1 Single stillbirth; Z88.8 Allergy status to other drugs, medicaments and biological substances; Z91.010 Allergy to peanuts
CPT/HCPCS: 36415; 76815; 80306; 81001; 85027; 86780; 86850; 86900; 86901; 87340; 87491; 87591; 88305; 96374; 96375; G0378; J2210; J2270; J2405; J3490

== ENCOUNTER 2019-09-12 09:56 | Observation (INO) | payer OTHER ==
[2019-09-12] MEDS ORDERED: Ondansetron PF 4 MG/2 ML Vial ONE (10:16)
[2019-09-12] MEDS ORDERED: Ketorolac Tromethamine 30 MG/ML VIAL ONE (10:16)
[2019-09-12] MEDS ORDERED: PROPOFOL 200 MG/20 ML VIAL ONE (10:16)
[2019-09-12] MEDS ORDERED: ePHEDrine/0.9% NaCl/PF SYRINGE 50 mg/10 ml ONE (10:16)
[2019-09-12] MEDS ORDERED: Dexamethasone 20 MG/5 ML VIAL ONE (10:16)
[2019-09-12] MEDS ORDERED: Lidocaine 1% PF 5 ML VIAL ONE (10:16)
[2019-09-12 11:11] LABS: Eosinophils 7 % (0-10); Hemoglobin 11.3 g/dL (12.0-16.0); Lymphocytes 64 % (21-51); MDiff Complete? YES; Mean Corpuscular HGB CONC 31.3 g/dL (32.0-36.0); Mean Corpuscular Hemoglobin 30.7 pg (27.0-31.0); Mean Corpuscular Volume 98.1 fL (78.0-98.0); Mean Platelet Volume 7.9 fL (7.4-10.4); Monocytes 4 % (0-10); Neutrophil 25 % (42-75); Platelet Count 229 thou/uL (130-400); RBC Distribution Width 11.9 % (11.5-14.5); Red Blood Cell (RBC) Count 3.67 mill/uL (4.20-5.40); White Blood Cell (WBC) Count 3.8 thou/uL (4.8-10.8)
[2019-09-12 11:12] LABS: ALT (SGPT) 19 U/L (8-55); AST (SGOT) 21 U/L (5-34); Albumin 4.4 g/dL (3.5-5.0); Alkaline Phosphatase 64 U/L (40-110); Anion Gap 13 mmol/L (10-20); BUN (Urea Nitrogen) 9 mg/dL (7.0-18.7); Bilirubin, Total 0.5 mg/dL (0.2-1.2); Calc. Creatinine Clearance 0 mL/min (70-130); Carbon Dioxide 24 mmol/L (22-29); Chloride 110 mmol/L (98-107); Estimated GFR-MDRD Greater than 90; Globulin 2.7 g/dL (2.4-3.5); Glucose 72 mg/dL (70-105); Potassium 3.7 mmol/L (3.5-5.1); Protein, Total 7.1 g/dL (6.0-8.3); Sodium 143 mmol/L (136-145)
--- NOTE | 2019-09-12 11:47 | ULT ---
ULTRASOUND PELVIC ULTRASOUND TRANSVAGINAL DOPPLER DUPLEX: DATE: 09/12/2019 HISTORY: 24-year-old female with vaginal bleeding after vaginal delivery on 07/29/2019. TECHNIQUE: Transabdominal transducer and endovaginal transducer used to visualize intrapelvic contents with rothman scale, color-flow, and spectral analysis. FINDINGS: Uterus: 8 x 4.5 x 6 cm. Endometrial stripe: 1.1 cm (11 mm) at the uterine body. At uterine fundus located centrally, there is an approximately 2.5 x 2 x 1.5 cm region of heterogeneo us echogenicity, with increased blood flow. This is presumably within the endometrial cavity. Very small volume of free fluid in cul-de-sac. Bilateral ovaries are normal. IMPRESSION: Evidence for retained products of conception.
[2019-09-12 12:47] LABS: Bacteria/HPF None Seen HPF (None Seen); Bilirubin Negative (Negative); Blood, Urine 2+ (Negative); Clarity Clear (Clear); Glucose, Urine (Dipstick) Normal (Negative); Leukocyte Negative Leu/uL (Negative); Nitrite Negative (Negative); Protein, Urine (Dipstick) Negative (Neg-Trace); Urobilinogen Normal mg/dL (Less than 2)
[2019-09-12] MEDS ORDERED: Misoprostol 200 MCG TAB VAG SCH (13:30)
[2019-09-12] MEDS ORDERED: HYDROcodone/Acetaminophen 10/325 mg Tablet ONE (13:41)
[2019-09-12] MEDS ORDERED: HYDROcodone/Acetaminophen 5/325 mg Tablet PO PRN (13:55)
[2019-09-12] MEDS ORDERED: Ondansetron PF 4 MG/2 ML Vial IVP PRN (13:55)
--- NOTE | 2019-09-12 14:14 | PDOC.FPRHP ---
- History of Present Illness Chief Complaint: Vaginal bleeding History of Present Illness: 24 year old female presents with vaginal bleeding that has been persistent since deliver of non-viable male infant at 18 WGA on 07/29/2019. Patient states the bleeding is heavy and requiring her to go through a pad every 2-3 hours. She states she has gone through 5-6 packs (12-14 pads per pack) of regular pads since that time. Patient endorses lower abdominal cramping associated with bleeding. Patient denies significant fatigue, syncope, shortness of breath. She decided to come to ED today because she noted the passage of large clots. Patient denies any significant PMH, although review of records indicates that she has bipolar disorder and mild intermittent asthma. Patient is not currently taking any medications. Per delivery note, placenta delivered shortly after non- viable and was documented to be intact. The placenta pathology did indicate that there was inflammation and necrosis of the decidua that involved membranes. - Allergies/Adverse Reactions Allergies Allergy/AdvReac Type Severity Reaction Status Date / Time divalproex sodium Allergy Severe Anaphylaxis Verified 07/16/18 13:48 [From Depakote] peanut Allergy Severe Short of Verified 07/16/18 13:48 Breath zolpidem [From Ambien] Allergy Verified 09/12/19 15:05 - History PMHx: Bipolar disorder, Mild intermittent asthma PSHx: [place] teeth extraction 2011 Social: Patient with UDS positive for marijuana in the past - Review of Systems General: denies: fever/chills Cardiovascular: denies: chest pain, palpitation, edema Gastrointestinal: reports: abdominal pain. denies: nausea, vomiting Genitourinary: denies: dysuria Skin: denies: rashes, lesions Neurological: denies: syncope, seizure Psychological: reports: other (Bipolar disorder) - Vital signs BP: 114/78 HR: 74 RR: 16 Tmax: 98.8F Pox: 99% on RA Wt: 63.5 kg - Physical Exam Constitutional: NAD, awake, alert and oriented, well developed HEENT: grossly normal vision, grossly normal hearing Heart: RRR, pulses present Lungs: no respiratory distress Abdomen: soft Neurological: no focal deficit, CN II-XII intact Skin: no rash/lesions, capillary refill <2 seconds Heme/Lymphatic: no unusual bruising or bleeding, no purpura -Psychiatric: Tearful toward end of encounter FMR H&P: Results - Labs Result Diagrams: 09/13/19 06:12 09/12/19 10:37 Lab results: WBC 3.8 thou/uL (4.8-10.8) L 09/12/19 10:37 Hgb 11.3 g/dL (12.0-16.0) L 09/12/19 10:37 Hct 36.0 % (36.0-47.0) 09/12/19 10:37 MCV 98.1 fL (78.0-98.0) H 09/12/19 10:37 Plt Count 229 thou/uL (130-400) 09/12/19 10:37 Sodium 143 mmol/L (136-145) 09/12/19 10:37 Potassium 3.7 mmol/L (3.5-5.1) 09/12/19 10:37 Chloride 110 mmol/L (98-107) H 09/12/19 10:37 Carbon Dioxide 24 mmol/L (22-29) 09/12/19 10:37 BUN 9 mg/dL (7.0-18.7) 09/12/19 10:37 Creatinine 0.78 mg/dL (0.6-1.1) 09/12/19 10:37 Glucose 72 mg/dL (70-105) 09/12/19 10:37 Calcium 9.0 mg/dL (7.8-10.44) 09/12/19 10:37 Total Bilirubin 0.5 mg/dL (0.2-1.2) 09/12/19 10:37 AST 21 U/L (5-34) 09/12/19 10:37 ALT 19 U/L (8-55) 09/12/19 10:37 Alkaline Phosphatase 64 U/L (40-110) 09/12/19 10:37 Serum Total Protein 7.1 g/dL (6.0-8.3) 09/12/19 10:37 Albumin 4.4 g/dL (3.5-5.0) 09/12/19 10:37 Urine Ketones Negative mg/dL (Negative) 09/12/19 12:07 Urine Blood 2+ (Negative) A 09/12/19 12:07 Urine Nitrite Negative (Negative) 09/12/19 12:07 Ur Leukocyte Esterase Negative Nannette/uL (Negative) 09/12/19 12:07 Urine RBC 7-10 HPF (0-3) A 09/12/19 12:07 Urine WBC 4-6 HPF (0-3) A 09/12/19 12:07 Ur Squamous Epith Cells 4-6 HPF (0-3) A 09/12/19 12:07 Urine Bacteria None Seen HPF (None Seen) 09/12/19 12:07 FMR H&P: A/P - Plan 24 year old female s/p at 18 WGA on 07/29/2019 presents with persistent vaginal bleeding Vaginal bleeding possibly 2/2 retained products of conception - TVUS shows a 2.5x2x1.5 cm region of heterogenous echogenicity w/ increased blood flow at uterine fundus - Patient's clinical picture concerning for retained products - Pelvic exam with blood in posterior fornix and fresh blood at os, but no visible POC. Os appeared closed. - Cytotec 800 mcg given down in ED, along with hydrocodone for pain - If no passage of products, will proceed with D&C as scheduled at 18:00; patient last ate around 10:30 AM - Patient to remain NPO until scheduled D&C, will start on maintenance LR Dispo: Obs on [employer] until scheduled D&C at 18:00 tonight. Plan for discharge home after D&C. Plan discussed with Dr. Miguel who was present for evaluation. FMR H&P: Upper Level - Plan Date/Time: 09/12/19 1405 I, [], have evaluated this patient and agree with findings/plan as outlined by manager intern resident. Pertinent changes/additions are listed here. Addendum - Attending - Attending Attestation Date/Time: 09/13/19 [id number] I personally evaluated the patient and discussed the management with Dr. Mohan I agree with the History, Examination, Assessment and Plan documented above with any addition or exceptions noted below.
[2019-09-12 15:09] VITALS: BMI 21.2
[2019-09-12] MEDS: Lactated Ringer's 1,000 ML IV SCH (15:24)
[2019-09-12] MEDS ORDERED: Morphine 2 MG/ML SYRINGE SLOW IVP SCH (16:30)
--- NOTE | 2019-09-12 17:46 | ULT ---
EXAM: TRANSVAGINAL PELVIC ULTRASOUND: 09/12/19 HISTORY: Vaginal bleeding. COMPARISON: Prior 09/12/2019 study. Persistent free cul-de=sac fluid. Somewhat thickened heterogeneous endometrium with some increased blood flow. Concern remains for retained products of conception. IMPRESSION: Thickened heterogeneous endometrium concerning for possible retained products of conception. Free cu l-de-sac fluid. POS: RRE
[2019-09-12] MEDS ORDERED: Midazolam HCl 2 mg/2 ml Vial ONE (18:32)
[2019-09-12] MEDS ORDERED: Fentanyl 100 MCG/2 ML VIAL ONE ×2 (18:32→20:11)
[2019-09-12] MEDS ORDERED: Silver Nitrate Application 1 EACH ONE (19:19)
[2019-09-12] MEDS ORDERED: Promethazine HCl 25 MG/ML VIAL IM PRN (19:24)
[2019-09-12] MEDS ORDERED: PACU-Morphine 4MG/ML VIAL SLOW IVP PRN (19:24)
[2019-09-12] MEDS ORDERED: Promethazine HCl 25 MG/ML VIAL SLOW IVP PRN (19:24)
[2019-09-12] MEDS ORDERED: Ondansetron HCl/PF 4 MG/2 ML Vial IVP PRN (19:24)
[2019-09-12] MEDS ORDERED: HYDROmorphone 2 MG/ML VIAL SLOW IVP PRN (19:24)
[2019-09-12] MEDS ORDERED: diphenhydrAMINE 50 MG/ML VIAL IVP PRN (21:54)
[2019-09-12] MEDS ORDERED: Tranexamic Acid 1,000 MG in Sodium Chloride 0.9% 250 ML 250 ML IVPB SCH (23:45)
[2019-09-13] MEDS: Estrogens, Conjugated 25 mg Vial SLOW IVP SCH ×2 (00:14→00:30)
[2019-09-13] MEDS ORDERED: Sterile Water 10 ML VIAL FS PRN (00:18)
[2019-09-13] MEDS ORDERED: Tranexamic Acid 1,000 MG in Sodium Chloride 0.9% 250 ML 250 ML IVPB SCH (01:00)
[2019-09-13] MEDS: HYDROcodone/Acetaminophen 5/325 mg Tablet PO PRN ×2 (02:16→08:00)
[2019-09-13] MEDS: Lactated Ringer's 1,000 ML IV SCH ×2 (02:19→07:23)
[2019-09-13 06:49] LABS: Hemoglobin 9.4 g/dL (12.0-16.0); Mean Corpuscular HGB CONC 32.1 g/dL (32.0-36.0); Mean Corpuscular Hemoglobin 30.5 pg (27.0-31.0); Mean Corpuscular Volume 95.1 fL (78.0-98.0); Mean Platelet Volume 7.2 fL (7.4-10.4); Platelet Count 261 thou/uL (130-400); RBC Distribution Width 11.4 % (11.5-14.5); Red Blood Cell (RBC) Count 3.06 mill/uL (4.20-5.40); White Blood Cell (WBC) Count 4.2 thou/uL (4.8-10.8)
--- NOTE | 2019-09-13 07:16 | PDOC.FM ---
- Subjective Subjective: Patient doing much better this AM. After surgery yesterday evening patient passed several large clots. At appx 4:00 AM patient passed another clot which was unable to be measured as it fell down the drain. This AM, patient notes blood in the toilet when urinating, but no passage of clots. Pad this AM did not need to be change, there was minimal amount of bleeding on pad. Patient states she is feeling better. She still has some lower back pain and cramping sensation, but it is tolerable. Patient denies N/V, chest pain, shortness of breath, dizziness. - Objective MAR Reviewed: Yes Vital Signs & Weight: Vital Signs (12 hours) Temp Pulse Resp BP BP Pulse Ox 09/13/19 04:00 98.5 F 65 16 123/59 L 09/12/19 23:18 98 F 56 L 20 126/56 L 97 09/12/19 21:25 65 16 113/53 L 98 09/12/19 20:55 97.9 F 61 18 116/56 L 98 Weight Weight 63.503 kg I&O: 09/12/19 09/13/19 09/14/19 06:59 06:59 06:59 Output Total 570 Balance -570 Result Diagrams: 09/13/19 06:12 09/12/19 10:37 Phys Exam - Physical Examination Constitutional: NAD Respiratory: clear to auscultation bilateral Cardiovascular: RRR Gastrointestinal: soft, non-tender, no distention Musculoskeletal: no edema, pulses present Neurological: non-focal Psychiatric: normal affect, A&O x 3 Skin: no rash, cap refill <2 seconds Dx/Plan (1) Uterine polyp Code(s): N84.0 - POLYP OF CORPUS UTERI Status: Acute (2) Abnormal uterine bleeding due to endometrial polyp Code(s): N93.9 - ABNORMAL UTERINE AND VAGINAL BLEEDING, UNSPECIFIED; N84.0 - POLYP OF CORPUS UTERI Status: Acute - Plan Plan: AUB due to endometrial polyp: - Polyp removed by D&C yesterday - Patient continued to have some bleeding after procedure - TXA started and bleeding has lessened - Patient much improved this AM, very minimal bleeding noted this morning Dispo: Stable. Plan for d/c home this AM. Follow up with PCP within next 2-3 weeks.
[2019-09-13] MEDS ORDERED: Tranexamic Acid 1,000 MG in Sodium Chloride 0.9% 100 ML IVPB SCH ×2 (08:00→09:00)
[2019-09-13 08:11] VITALS: BP 107/55; TEMP 98.8
--- NOTE | 2019-09-14 08:03 | DIS ---
DATE OF ADMISSION: 09/12/2019 DATE OF DISCHARGE: 09/13/2019 ADMITTING DIAGNOSES: 1. Abnormal uterine bleeding. 2. Six weeks . 3. Suspected retained products of conception by ultrasound. DISCHARGE DIAGNOSES: 1. Abnormal uterine bleeding. 2. Six weeks postpartu 3. Suspected retained products of conception by ultrasound. 4. Endometrial polyp. PROCEDURE: Hysteroscopy with D and C. CONSULTATIONS: None. HOSPITAL COURSE: Patient is a 24-year-old female presenting to the emergency room with heavy vaginal bleeding. She reports it has been persistent since the time of delivery about 6 weeks ago. She reports that she has been having a lot of cramping today and bleeding enough that she has to change her pad every few hours with being saturated. She initially thought that her bleeding was her period, but given the length of time that this was happening, she realizes this was not normal. Workup in the emergency room included a quantitative HCG of 2, and ultrasound did demonstrate intrauterine mass with high vascularity in the fundal portion of the uterus, which was suspected given the clinical history of being retained products of conception. Upon review of the patient's findings and options, the suction D and C was suggested with hysteroscopy. The patient was counseled the risks and benefits including bleeding, infection, damage to bowel, bladder, blood vessels, perforation of the uterus, sterility, risk of conversion to exploratory laparotomy and hysterectomy. Patient expressed understanding and desired to proceed and was taken to the operating room. She under hysteroscopy was noted to have an endometrial polyp which was easily removed with a suction D and C and sharp D and C. on review of the cavity with the hysteroscopy afterwards, the cavity appeared to be empty with some shaggy endometrium. Patient was then brought to the floor for recovery. Here, she has been awake and alert and pain under decent control and is ready for discharge home. She will be following with Dr. Abdul in a couple weeks. She has been counseled to follow up sooner should she experience fever, increasing pain, or bleeding. We will be awaiting results of pathology. addendum: 09/15/19 please see the dictated note for further details. in short pt started having bleeding again and was started on lysteda and kept over night. bleeding stopped and pt was discharged home with several days of po lysteda. Job ID: [id number] [facility]
--- NOTE | 2019-09-14 08:23 | DIS ---
DATE OF ADMISSION: 09/12/2019 DATE OF DISCHARGE: 09/13/2019 ADDENDUM: The patient was on her way being discharged last night from and and began having some heavy bleeding. The patient was kept overnight for observation and placed on TXA. This morning, her bleeding since that episode has been minimal and she has been up to go to the bathroom, is ambulating and has noticed the bleeding is much improved. PHYSICAL EXAMINATION: VITAL SIGNS: Remained stable. Blood pressure 123/59, respiratory rate of 16, pulse of 65, and temperature 98.5. GENERAL: She appears to be in no acute distress. Her fundus is firm. EXTREMITIES: Nontender, nonedematous. LABORATORY DATA: Labs drawn this morning, hemoglobin is 9.5, hematocrit 29.1, and platelets of 261. DISCHARGE INSTRUCTIONS: The patient is being discharged to home. She has 3 more days of Lysteda that she will be taking. She has instructions to follow up with Dr. Abdul in 2 weeks for postop visit and has been counseled to seek medical attention should she experience fever, increasing pain, or heavy bleeding. Job ID: [id number]
--- NOTE | 2019-09-14 10:31 | OP ---
DATE OF PROCEDURE: 09/13/2019 PREOPERATIVE DIAGNOSES: 1. Abnormal uterine bleeding. 2. 6 weeks . 3. Intrauterine mass with suspected retained products of conception. POSTOPERATIVE DIAGNOSES: 1. Abnormal uterine bleeding. 2. 6 weeks . 3. Intrauterine mass with suspected retained products of conception. 4. Endometrial polyp. PROCEDURE PERFORMED: Hysteroscopy with dilation and curettage. [employer] MESSAGE BROKER DEVELOPER: Dr. Mohan, child and family therapist. COMPLICATIONS: None. CONDITION: Stable to recovery room. SPECIMENS: Endometrial curettings and suspected polyp sent to Pathology. COUNTS: Correct. DESCRIPTION OF PROCEDURE: Ms. Mejia is a 24-year-old female who had an 18-week loss about 6 weeks prior to presentation, presenting to the emergency room with persistent vaginal bleeding. She reports the bleeding at times has been quite heavy and has never stopped since that moment. In the emergency room, she was evaluated and noted to have a fundal mass highly vascular in the fundal region about 2.5 cm by 1.5 cm. After evaluation of the patient and irregular history and presence of this mass, recommendations were made for hysteroscopy, D and C. Risks were discussed including risk of bleeding, infection, damage to bowel or bladder or blood vessels, perforation of the uterus, and negative impact of fertility. The patient expressed understanding and desired to proceed. She was taken to the operating room, where she was placed under general anesthesia in the dorsal lithotomy position in Alberto stirrups. She was prepared and draped in normal sterile fashion. Attention was placed vaginally, where with the aid of an operative speculum, the cervix was identified and grasped with a single-tooth tenaculum on the anterior lip. Uterus was sounded to approximately 8 cm. The cervix was noted to still be quite dilated secondary to the delivery. I did not need any further dilation. Hysteroscope was placed into the uterine cavity and immediately noted in the fundal region was what appeared to be a polyp, round and fleshy in the uterine fundus and both tubal ostia were identified and the endometrium itself appeared to be shaggy. The suction curette was then used, followed by sharp curetting. Good uterine cry was noted in all 4 quadrants. Replacement of the hysteroscope demonstrated removal of this fundal mass. The uterine contents were sent to Pathology for review. At this point in time, the procedure was completed. Hysteroscope was removed. The single-tooth tenaculum was removed. Hemostasis was achieved with pressure on the tenaculum sites on the uterine body. Once this was achieved, the procedure was completed and the patient was taken to recovery room in stable condition. Total estimated blood loss approximately 100 mL. Job ID: [id number]
== END 2019-09-13 08:37 | disposition home or self-care (01) ==
LOC: ERS 09:56 → 3SE 12:58
PROVIDERS: ADMIT Obstetrics & Gynecology; ATTEND Obstetrics & Gynecology
PROC: 0UB98ZX Excision of Uterus, Via Natural or Artificial Opening Endoscopic, Diagnostic (ICD-10-PCS; principal; 2019-09-12)
PROC: 0UDB8ZX Extraction of Endometrium, Via Natural or Artificial Opening Endoscopic, Diagnostic (ICD-10-PCS; 2019-09-12)
DX: O04.6 Delayed or excessive hemorrhage following (induced) termination of pregnancy (principal); N84.0 Polyp of corpus uteri
CPT/HCPCS: 36415; 76856; 80053; 81003; 81015; 84702; 85025; 85027; 86850; 86900; 86901; J1410; J2250; J2270; J2405; J3010; J7050

== ENCOUNTER 2019-09-13 12:10 | Inpatient (IN) | payer OTHER ==
[2019-09-13] MEDS ORDERED: Morphine 4 MG/ML VIAL ONE (13:08)
[2019-09-13] MEDS ORDERED: Ondansetron PF 4 MG/2 ML Vial ONE (13:09)
[2019-09-13 13:18] LABS: #Lymphocytes 2.9 thou/uL (1.20-3.40); #Monocytes 0.6 thou/uL (0.11-0.59); #Neutrophils 3.2 thou/uL (1.40-6.50); %Basophils 0.3 % (0.0-1.0); %Eosinophils 0.2 % (0.0-10.0); %Lymphocytes 43.6 % (21.0-51.0); %Monocytes 8.8 % (0.0-10.0); %Neutrophils 47.1 % (42.0-75.0); Hemoglobin 9.1 g/dL (12.0-16.0); Mean Corpuscular Hemoglobin 31.3 pg (27.0-31.0); Mean Corpuscular Volume 95.1 fL (78.0-98.0); Platelet Count 255 thou/uL (130-400); RBC Distribution Width 11.5 % (11.5-14.5); Red Blood Cell (RBC) Count 2.91 mill/uL (4.20-5.40); White Blood Cell (WBC) Count 6.7 thou/uL (4.8-10.8)
[2019-09-13 13:40] LABS: ALT (SGPT) 17 U/L (8-55); AST (SGOT) 17 U/L (5-34); Albumin 3.8 g/dL (3.5-5.0); Alkaline Phosphatase 49 U/L (40-110); Anion Gap 11 mmol/L (10-20); BUN (Urea Nitrogen) 7 mg/dL (7.0-18.7); Bilirubin, Total 0.4 mg/dL (0.2-1.2); Calc. Creatinine Clearance 0 mL/min (70-130); Calcium 8.4 mg/dL (7.8-10.44); Carbon Dioxide 22 mmol/L (22-29); Chloride 109 mmol/L (98-107); Estimated GFR-MDRD Greater than 90; Globulin 2.3 g/dL (2.4-3.5); Glucose 89 mg/dL (70-105); Potassium 3.5 mmol/L (3.5-5.1); Protein, Total 6.1 g/dL (6.0-8.3); Sodium 138 mmol/L (136-145)
[2019-09-13] MEDS ORDERED: Tranexamic Acid 1,000 MG in Sodium Chloride 0.9% 250 ML 250 ML IVPB SCH (13:45)
--- NOTE | 2019-09-13 14:08 | ULT ---
ULTRASOUND TRANSVAGINAL DOPPLER DUPLEX: DATE: 09/13/2019 HISTORY: 24-year-old female with retained products of conception status post DNC. COMPARISON: 09/12/2019 TECHNIQUE: Transabdominal transducer used to visualize intrapelvic contents with grayscale, color-flow, and spec tral analysis. FINDINGS: Endometrial stripe 16.5 mm in thickness. There continues to be material of heterogeneous echogenicity throughout the endometrial cavity, as pr eviously demonstrated. However, blood flow within it is no longer demonstrated by Doppler. Lack of blood flow does not necessarily rule out retained products of conception. Minimal amount of free fluid in the cul-de-sac. Ovaries not evaluated. IMPRESSION: There continues to be material of intermediate echogenicity filling and expanding the endometrial cav ity, but vascularity is no longer demonstrated. These could represent large amount of blood clots, although retained products of conception are not completely excluded.
[2019-09-13] MEDS ORDERED: Ondansetron PF 4 MG/2 ML Vial IVP PRN (16:01)
[2019-09-13] MEDS ORDERED: Calcium Carbonate 500 MG ChewTAB PO PRN (16:01)
--- NOTE | 2019-09-13 16:35 | HP ---
REASON FOR ADMISSION: Persistent delayed hemorrhage. HISTORY OF PRESENT ILLNESS: Ms. Mejia is a 24-year-old 4, para 2, AB 2, status post delivery of 18 week IUFD in mid July. She re-presented yesterday with an ultrasound that revealed a vascular structure at the fundus and patient underwent hysteroscopy, D and C by Dr. Chilango Miguel. He noted an area that was somewhat polypoid at the fundus and a very shaggy endometrium. No evidence of retained products of conceptions post procedure and pathology is pending on that procedure. The patient was administered Lysteda postoperatively and discharged home this morning. She had not had time to fill the Lysteda prescription, reported passage of some large clots and re-presented. She denies syncope or significant cramping. IT OPERATIONS SPECIALIST HISTORY: As noted. PAST MEDICAL HISTORY: None. Of note, the patient reports no history of free bleeding or bleeding abnormalities. The patient does have a history of bipolar disorder and mild intermittent asthma. SURGICAL HISTORY: Significant for the D and C yesterday with hysteroscopy as well as wisdom tooth extraction in 2011. SOCIAL HISTORY: Denies tobacco, alcohol, or IV drug abuse. The patient has a history of positive UDS for marijuana in the past. FAMILY HISTORY: Noncontributory for bleeding abnormalities. ALLERGIES: DEPAKOTE, PEANUT, AND AMBIEN. MEDICATIONS: Lysteda 1300 q.8. PHYSICAL EXAMINATION: GENERAL: Black female, resting comfortably. VITAL SIGNS: Pulse 74, blood pressure 118/72, respirations 18, temperature 98.6. HEENT: Within normal limits. LUNGS: Clear to auscultation bilaterally. HEART: Regular rate and rhythm. ABDOMEN: Soft and nontender. Pelvic and speculum exam are deferred at this time. The patient is noted to have a moderate amount of blood on a pad and was reportedly changing pads q.2 hours to the ER physician. LABORATORY DATA: Hematocrit is 27.6%, down from 29.1 at 0600 hours this morning. White count is 6.7, platelet count is 255. was within normal limits. Beta-HCG on 09/12 was 2.36. Pathology pending from D and C. IMPRESSION: Delayed hemorrhage. The patient is now status post D and C with hysteroscopy. Considering the findings in hysteroscopy, possible etiology of her hemorrhage is convoluted and could include hypoestrogenism or placenta site tumor. Retained products of conception seems very unlikely post surgically performed D and C guided by hysteroscopy. PLAN: We will admit the patient with serial hematocrits, conjugated equine estrogen 20 mg IV q.4 hours and Lysteda 1300 p.o. q.8 hours with serial hematocrits and platelet counts. We will follow up on pathology results tomorrow. If surgical intervention becomes necessary, likely would need to proceed planning for abdominal hysterectomy. We will type and cross for 2 units. Care plan discussed with the patient. The patient understands the plan. Job ID: [id number]
[2019-09-13 16:37] LABS: INR-International Normal Ratio 1.2; Prothrombin Time 15.3 SEC (12.0-14.7)
[2019-09-13 16:38] LABS: PTT 29.5 SEC (22.9-36.1)
[2019-09-13 17:33] VITALS: BMI 21.2
[2019-09-13] MEDS: Estrogens, Conjugated 25 mg Vial SLOW IVP SCH ×2 (18:33→22:59)
[2019-09-13] MEDS: Acetaminophen 325 MG TAB PO PRN (20:17)
[2019-09-13] MEDS ORDERED: Ibuprofen 800 MG TAB PO PRN (22:44)
[2019-09-13] MEDS ORDERED: Sterile Water 10 ML ONE (22:50)
[2019-09-13] MEDS ORDERED: Sodium Chloride 0.9% 10 ML ONE (22:56)
[2019-09-13] MEDS: Tranexamic Acid 650 MG TAB PO SCH (22:58)
[2019-09-13] MEDS: Ondansetron ODT 4 MG TAB PO PRN (23:11)
[2019-09-14] MEDS: Estrogens, Conjugated 25 mg Vial SLOW IVP SCH ×5 (01:47→21:50)
[2019-09-14] MEDS ORDERED: Sterile Water 10 ML ONE (02:52)
[2019-09-14] MEDS ORDERED: Sodium Chloride 0.9% 10 ML ONE (06:43)
[2019-09-14 07:12] LABS: Mean Corpuscular HGB CONC 31.6 g/dL (32.0-36.0); Mean Corpuscular Hemoglobin 30.3 pg (27.0-31.0); Mean Corpuscular Volume 95.9 fL (78.0-98.0); Mean Platelet Volume 7.1 fL (7.4-10.4); Platelet Count 202 thou/uL (130-400); RBC Distribution Width 11.6 % (11.5-14.5); Red Blood Cell (RBC) Count 2.63 mill/uL (4.20-5.40); White Blood Cell (WBC) Count 5.4 thou/uL (4.8-10.8)
[2019-09-14 07:38] LABS: Band 2 % (5-11); Eosinophils 6 % (0-10); Lymphocytes 63 % (21-51); MDiff Complete? YES; Monocytes 4 % (0-10); Neutrophil 23 % (42-75); Platelet Morphology Comment Appears Adequate; RBC Morphology Normal; Reactive Lymphocytes 2 % (0-10)
--- NOTE | 2019-09-14 07:39 | PRG ---
DATE OF SERVICE: 09/14/2019 TIME OF SERVICE: 0700 hours. SUBJECTIVE: The patient is resting comfortably. She reports of mild abdominal cramping and nausea. Reports from overnight hours and her bleeding is minimal at most and then consist of dark old blood. OBJECTIVE: VITAL SIGNS: Temperature 98.7, T-max 98.8, pulse 73, respirations 18, and blood pressure 199/51. HEENT: Within normal limits. LUNGS: Clear to auscultation bilaterally. HEART: Regular rate and rhythm. ABDOMEN: Soft and nontender. Mild discomfort. Perineum is dry. EXTREMITIES: Without clubbing, cyanosis, or edema. LABORATORY DATA: AM Hct is 25% down from 27% Admission PT was 15.3, INR was 1.2, and PTT was 29.5. Beta-hCG was 2.08. IMPRESSION: Delayed hemorrhage, status post D and C, hysteroscopy with complete removal of products of conception. Ultrasound consistent with clot only in the uterine cavity on admission from the emergency room. PLAN: Continue Premarin at 20 mg IV q.4 hours. We will plan to gradually decrease this. Added Provera 5 mg b.i.d. Will continue Lysteda for five days. Plan for discharge home on 35 mcg OCP b.i.d. for one pack of active pills. Doubt placenta site tumor with beta HCG of 2.0. We will await pathology from Dr. Miguel's D and C [address] Kim taking over patient's care at 0800 hours today. Job ID: [id number] MTDD
[2019-09-14] MEDS ORDERED: Lidocaine 2% Viscous Solution 20 ML, Aluminum & Magnesium Hydroxide 30 ML, Donnatal Eli... SSW SCH (08:15)
[2019-09-14] MEDS: Promethazine HCl 12.5 MG in Sodium Chloride 0.9% 50 ML IVPB PRN (09:13)
[2019-09-14] MEDS: medroxyPROGESTERone Acetate 5 MG TAB PO SCH ×2 (19:45→21:49)
[2019-09-14] MEDS: Tranexamic Acid 650 MG TAB PO SCH ×3 (19:45→21:49)
[2019-09-14] MEDS: Famotidine 20 MG TAB PO SCH ×2 (19:45→21:49)
[2019-09-14] MEDS: metroNIDAZOLE 500 MG TAB PO SCH (21:49)
[2019-09-14] MEDS: Acetaminophen 325 MG TAB PO PRN (22:58)
[2019-09-15] MEDS: Estrogens, Conjugated 25 mg Vial SLOW IVP SCH ×3 (04:44→09:12)
--- NOTE | 2019-09-15 07:05 | PDOC.BPN ---
- Brief Progress Note S: Patient reports her bleeding is getting better and she's feeling better. Had significant nausea and vomiting yesterday after starting Premarin. She refused it the rest of the day following this. O: tm (09/14 at 1919) 100.8 Tc: 99.0 Gen - AAO, NAD Abd - soft, NTTP Laboratory Results - last 24 hr 09/14/19 05:50 WBC 5.4 RBC 2.63 L Hgb 8.0 L Hct 25.2 L MCV 95.9 MCH 30.3 MCHC 31.6 L RDW 11.6 Plt Count 202 MPV 7.1 L Neutrophils % (Manual) 23 L Band Neuts % (Manual) 2 L Lymphocytes % (Manual) 63 H Reactive Lymphs % 2 Monocytes % (Manual) 4 Eosinophils % (Manual) 6 Neutrophils # Not Reportable Lymphocytes # Not Reportable Plt Morphology Comment Appears Adequate RBC Morph Comment Normal A/P: 24 y/o s/p hysteroscopy with D&C for vaginal bleeding. Pathology pending. On lysteda and provera. Stopped the premarin after morning dose. Patient's mom asked if she should report this as an allergy but it was explained that nausea/vomiting is a common side effect and she could likely tolerate a smaller dose. She voiced understanding. We will continue to monitor today. Discussed possible d/c home on OCPs to control bleeding and the patient was very resistant because she wants more babies. I explained that it would not be permanent but a way to control her bleeding until she is ready. She will think about it.
[2019-09-15] MEDS: metroNIDAZOLE 500 MG TAB PO SCH (09:13)
[2019-09-15] MEDS: Tranexamic Acid 650 MG TAB PO SCH ×2 (09:13→15:29)
[2019-09-15] MEDS: Famotidine 20 MG TAB PO SCH (09:14)
[2019-09-15] MEDS: medroxyPROGESTERone Acetate 5 MG TAB PO SCH (09:15)
[2019-09-15] MEDS ORDERED: Sodium Chloride 0.9% 10 ML ONE (10:55)
[2019-09-15] MEDS ORDERED: SODIUM CHLORIDE 0.9% FS SCH (11:00)
[2019-09-15] MEDS ORDERED: [UNRECOGNIZED DRUG - OTHER] FS SCH (11:00)
[2019-09-15] MEDS ORDERED: ESTROGENS FS SCH (11:00)
[2019-09-15] MEDS: Ondansetron ODT 4 MG TAB PO PRN ×2 (11:02→19:09)
[2019-09-15] MEDS: Promethazine HCl 12.5 MG in Sodium Chloride 0.9% 50 ML IVPB PRN ×2 (11:22→21:54)
[2019-09-15] MEDS: Acetaminophen 325 MG TAB PO PRN (19:09)
[2019-09-15] MEDS ORDERED: Milk Of Magnesia 30 ML UDCUP PO PRN (21:43)
[2019-09-15] MEDS ORDERED: Promethazine HCl 25 MG/ML VIAL IM SCH (22:15)
--- NOTE | 2019-09-15 22:56 | PDOC.EVN ---
Event Note - Event Note Event Note: CAlled to room with pt vomiting profusely. Pt had this problem yesterday with iv premarin. she agreed to try again today being premedicated and did well all day until this evening, several hours after taking a 2.5mg of premarin. In the process of trying to give her ivpb 12.5mg phenergan her iv blew. IM dose was given. Pt also had a sudden urge to have a bm and was successful. 1153pm went by to follow up with pt. She resting in the bed. She reports she has stopped vomiting. She is experiencing chest pain/heart burn that she attributes to the vomiting. I have reported to her I have changed her from conjugated estrogens to estradiol 1mg and will see how she responds to this in the morning.
[2019-09-16] MEDS: Ondansetron ODT 4 MG TAB PO PRN ×2 (02:36→09:12)
[2019-09-16] MEDS ORDERED: Promethazine HCl 25 MG/ML VIAL IM PRN (03:48)
[2019-09-16] MEDS: Acetaminophen 325 MG TAB PO PRN (03:55)
[2019-09-16] MEDS: Promethazine 25 MG TAB PO PRN ×2 (03:55→12:29)
[2019-09-16] MEDS: metroNIDAZOLE 500 MG TAB PO SCH ×2 (03:58→08:58)
[2019-09-16] MEDS: Famotidine 20 MG TAB PO SCH ×2 (03:59→08:58)
[2019-09-16] MEDS: medroxyPROGESTERone Acetate 5 MG TAB PO SCH ×2 (03:59→09:00)
[2019-09-16] MEDS: Tranexamic Acid 650 MG TAB PO SCH ×2 (04:00→08:59)
[2019-09-16] MEDS ORDERED: Estradiol 1 MG TAB PO SCH (09:00)
--- NOTE | 2019-09-16 09:02 | PRG ---
DATE OF SERVICE: 09/16/2019 SUBJECTIVE: The patient is a 24-year-old female, who is approximately 6 weeks , complicated by persistent vaginal bleeding. D and C was performed a couple of days ago and discharged home with scant bleeding, who then returned later for persistent return of her bleeding. Since that time, attempts have been made to place the patient on IV estrogen and has been on Lysteda. She has had very difficult time with the IV estrogen with persistent retching and vomiting and less pretreated, which she was able to do yesterday and tolerate. However, later in the evening with the p.o. Premarin, the patient again had persistent severe vomiting. This morning, she is feeling better. She is hungry. She continues to have very minimal to no bleeding. Vital signs this morning; blood pressure is 113/65, pulse of 57, temperature 99.1, O2 sats of 99%. She is resting, sleeping, having difficult time communicating and interacting with her. However, she does report that she is hungry and reports that her nausea has gotten better and she reiterated that she is not going to be taking anymore estrogen. She communicated that she has been on control pills before in the past without difficulty. I shared with her I have changed her over from conjugated estrogens to estradiol 1 mg to see if she will tolerate that. She has agreed to take that today. ASSESSMENT AND PLAN: The patient is a 24-year-old female with bleeding. We are awaiting on the pathology results for D and C, and we have been working to get the patient's bleeding under control. We have moved over to p.o. estradiol this morning. If she tolerates that well, the patient can be discharged home with either estradiol for the next several weeks or control pill that she can take. Probably passing over care to Dr. Gibson, the oncoming physician, who can make that decision. Job ID: [id number]
[2019-09-16 11:45] VITALS: BP 112/59; TEMP 99
--- NOTE | 2019-09-16 14:30 | PDOC.EVN ---
Event Note - Event Note Event Note: wasnts to go home. Tolerating regular diet and estrogen. VSS AF >24 hrs. No significant bleeding. Path returns benign. Plan; DC home RTC [address] Abdul. Precautions. Home on [place] , [address] [place].
== END 2019-09-16 15:37 | disposition home or self-care (01) | DRG 779 ==
LOC: ERS 12:10 → 3SE 16:06 → OBSVTOIN 16:06
PROVIDERS: ADMIT Obstetrics & Gynecology; ATTEND Obstetrics & Gynecology
DX: O04.6 Delayed or excessive hemorrhage following (induced) termination of pregnancy (principal); Z88.8 Allergy status to other drugs, medicaments and biological substances; Z91.010 Allergy to peanuts
CPT/HCPCS: 36415; 76856; 80053; 81003; 81015; 84702; 85025; 85027; 85610; 85730; 86850; 86900; 86901; 88305; 96361; 96365; 96366; 96375; G0378; J1100; J1410; J1885; J2001; J2250; J2270; J2405; J2550; J2704; J3010; J3490; J7050; Q0162; Q0169

== ENCOUNTER 2020-04-15 07:14 | Emergency (ER) | payer OTHER ==
[2020-04-15 07:58] LABS: Bilirubin Negative (Negative); Blood, Urine Negative (Negative); Clarity Clear (Clear); Glucose, Urine (Dipstick) Normal (Negative); Ketone, Urine Negative (Negative); Leukocyte 25 Leu/uL (Negative); Nitrite Negative (Negative); Protein, Urine (Dipstick) 20 mg/dL (Neg-Trace); RBC/HPF 0-3 HPF (0-3); Specific Gravity, Urine 1.024 (1.002-1.036); Squamous Epithelial 0-3 HPF (0-3); Urobilinogen Normal mg/dL (Less than 2); pH, Urine 6.5 (5.0-9.0)
[2020-04-15 08:03] LABS: Bacteria/HPF 1+ HPF (None Seen)
[2020-04-15] MEDS ORDERED: Ondansetron PF 4 MG/2 ML Vial ONE (08:15)
[2020-04-15 08:21] LABS: #Lymphocytes 1.2 thou/uL (1.20-3.40); #Monocytes 0.3 thou/uL (0.11-0.59); #Neutrophils 2.3 thou/uL (1.40-6.50); %Basophils 0.3 % (0.0-1.0); %Eosinophils 1.2 % (0.0-10.0); %Lymphocytes 30.6 % (21.0-51.0); %Monocytes 6.7 % (0.0-10.0); %Neutrophils 61.2 % (42.0-75.0); Hemoglobin 12.2 g/dL (12.0-16.0); Mean Corpuscular HGB CONC 32.3 g/dL (32.0-36.0); Mean Corpuscular Hemoglobin 29.2 pg (27.0-31.0); Mean Corpuscular Volume 90.5 fL (78.0-98.0); Mean Platelet Volume 6.8 fL (7.4-10.4); Platelet Count 253 thou/uL (130-400); RBC Distribution Width 13.9 % (11.5-14.5); Red Blood Cell (RBC) Count 4.16 mill/uL (4.20-5.40); White Blood Cell (WBC) Count 3.8 thou/uL (4.8-10.8)
[2020-04-15 08:41] LABS: ALT (SGPT) 16 U/L (8-55); AST (SGOT) 19 U/L (5-34); Albumin 4.4 g/dL (3.5-5.0); Alkaline Phosphatase 61 U/L (40-110); Anion Gap 10 mmol/L (10-20); BUN (Urea Nitrogen) 8 mg/dL (7.0-18.7); Bilirubin, Total 0.7 mg/dL (0.2-1.2); Calc. Creatinine Clearance 0 mL/min (70-130); Calcium 8.9 mg/dL (7.8-10.44); Carbon Dioxide 27 mmol/L (22-29); Chloride 106 mmol/L (98-107); Estimated GFR-MDRD Greater than 90; Globulin 2.9 g/dL (2.4-3.5); Glucose 95 mg/dL (70-105); Potassium 3.7 mmol/L (3.5-5.1); Protein, Total 7.3 g/dL (6.0-8.3); Sodium 139 mmol/L (136-145)
[2020-04-15 08:49] LABS: Pregnancy Test - Urine (BHCG) Negative (Negative); Pregu Control Background? CLEAR/WHITE (CLR/WHITE); Pregu Control Bar Appear? YES (CONTROL BAR); Specific Gravity 1.024 (1.002-1.036)
== END 2020-04-15 09:45 | disposition home or self-care (01) ==
LOC: ERS 07:14
DX: E86.0 Dehydration (principal); R11.0 Nausea; J45.909 Unspecified asthma, uncomplicated; D64.9 Anemia, unspecified; F31.9 Bipolar disorder, unspecified; F20.9 Schizophrenia, unspecified; Z87.891 Personal history of nicotine dependence
CPT/HCPCS: 36415; 80053; 81003; 81015; 81025; 85025; 87077; 87086; 96361; 96374; J2405

== ENCOUNTER 2020-05-20 12:08 | Emergency (ER) | payer OTHER ==
--- NOTE | 2020-05-20 13:36 | CT ---
CT BRAIN WITHOUT CONTRAST: Date: 05/20/2020 HISTORY: Fall, headache. FINDINGS: No evidence of acute infarct, hemorrhage, midline shift, or abnormal extra-axial fluid collections ar e seen. The ventricular size is normal and the basilar cisterns are patent. The bony calvarium is int act. The visualized paranasal sinuses and mastoid air cells are well aerated. IMPRESSION: No CT evidence of acute intracranial process. POS: AH
--- NOTE | 2020-05-20 13:43 | RAD ---
Exam:3 views left shoulder HISTORY: Fall. Pain. COMPARISON: None FINDINGS: No fracture or dislocation. Glenohumeral joint space is preserved. Visualized left ribs and lung do not demonstrate any posttraumatic change. IMPRESSION: No fracture or dislocation.
--- NOTE | 2020-05-20 13:47 | RAD ---
Exam: One view chest 3 views left RIBS HISTORY: Fall. Pain. FINDINGS: 1. View chest: Normal cardiac silhouette. Pulmonary vessels and hilum are normal. Costophrenic angles are clear. No consolidation or mass. No pneumothorax or acute osseous abnormalities 3 views left RIBS: No fracture, cortical irregularity or periosteal reaction. IMPRESSION: 1. No acute cardiopulmonary process 2. No evidence of a left rib fracture. Transcribed Date/Time: 05/20/2020 1:59 PM
--- NOTE | 2020-05-20 13:59 | CT ---
CT cervical spine noncontrast HISTORY: Injury. FINDINGS: Gentle reversal of the normal lordotic curvature. Vertebral body heights are maintained. Cervicothoracic junction is intact. No acute fracture or dislocation. IMPRESSION : No abnormalities are demonstrated.
[2020-05-20] MEDS ORDERED: Ketorolac Tromethamine 30 MG/ML VIAL ONE (14:05)
== END 2020-05-20 14:40 | disposition home or self-care (01) ==
LOC: ERS 12:08
DX: M54.2 Cervicalgia (principal); M25.512 Pain in left shoulder; R07.81 Pleurodynia; W18.30XA Fall on same level, unspecified, initial encounter
CPT/HCPCS: 70450; 72125; 96372; J1885

== ENCOUNTER 2020-05-21 04:23 | Emergency (ER) | payer OTHER ==
[2020-05-21] MEDS ORDERED: Bacitracin 1 PK ONE ×2 (07:34→07:36)
== END 2020-05-21 06:18 | disposition home or self-care (01) ==
LOC: ERS 04:23
DX: S70.312A Abrasion, left thigh, initial encounter (principal); S70.311A Abrasion, right thigh, initial encounter; F31.9 Bipolar disorder, unspecified; F20.9 Schizophrenia, unspecified; J45.909 Unspecified asthma, uncomplicated; F17.200 Nicotine dependence, unspecified, uncomplicated; D64.9 Anemia, unspecified; W22.8XXA Striking against or struck by other objects, initial encounter
CPT/HCPCS: 99283

== ENCOUNTER 2020-06-27 07:23 | Emergency (ER) | payer OTHER ==
[2020-06-27 08:02] LABS: Bacteria/HPF 4+ HPF (None Seen); Bilirubin Negative (Negative); Blood, Urine 1+ (Negative); Clarity Turbid (Clear); Glucose, Urine (Dipstick) Normal (Negative); Ketone, Urine Negative (Negative); Leukocyte 500 Leu/uL (Negative); Nitrite Negative (Negative); Protein, Urine (Dipstick) 10 mg/dL (Neg-Trace); Specific Gravity, Urine 1.019 (1.002-1.036); Transitional Epithelial 0-3 HPF (None Seen); Urobilinogen Normal mg/dL (Less than 2)
[2020-06-27 08:11] LABS: WBC/HPF 21-50 HPF (0-3)
[2020-06-27 08:12] LABS: Pregnancy Test - Urine (BHCG) Negative (Negative); Pregu Control Background? CLEAR/WHITE (CLR/WHITE); Pregu Control Bar Appear? YES (CONTROL BAR); Specific Gravity 1.019 (1.002-1.036)
[2020-06-27 08:15] LABS: #Eosinphils 0.2 thou/uL (0.0-0.7); #Lymphocytes 2.2 thou/uL (1.20-3.40); #Monocytes 0.4 thou/uL (0.11-0.59); #Neutrophils 2.3 thou/uL (1.40-6.50); %Basophils 0.9 % (0.0-1.0); %Eosinophils 4.3 % (0.0-10.0); %Lymphocytes 42.4 % (21.0-51.0); %Monocytes 7.5 % (0.0-10.0); %Neutrophils 44.9 % (42.0-75.0); Hemoglobin 12.6 g/dL (12.0-16.0); Mean Corpuscular HGB CONC 32.4 g/dL (32.0-36.0); Mean Corpuscular Volume 95.9 fL (78.0-98.0); Mean Platelet Volume 6.8 fL (7.4-10.4); Platelet Count 272 thou/uL (130-400); Red Blood Cell (RBC) Count 4.05 mill/uL (4.20-5.40); White Blood Cell (WBC) Count 5.2 thou/uL (4.8-10.8)
[2020-06-27 08:29] LABS: ALT (SGPT) 13 U/L (8-55); AST (SGOT) 15 U/L (5-34); Albumin 4.3 g/dL (3.5-5.0); Alkaline Phosphatase 78 U/L (40-110); Anion Gap 11 mmol/L (10-20); BUN (Urea Nitrogen) 11 mg/dL (7.0-18.7); Bilirubin, Total 0.3 mg/dL (0.2-1.2); Calc. Creatinine Clearance 0 mL/min (70-130); Calcium 9.2 mg/dL (7.8-10.44); Carbon Dioxide 28 mmol/L (22-29); Chloride 107 mmol/L (98-107); Estimated GFR-MDRD Greater than 90; Glucose 85 mg/dL (70-105); Potassium 4.3 mmol/L (3.5-5.1); Protein, Total 7.3 g/dL (6.0-8.3); Sodium 142 mmol/L (136-145)
== END 2020-06-27 10:53 | disposition home or self-care (01) ==
LOC: ERS 07:23
DX: N30.00 Acute cystitis without hematuria (principal); N76.0 Acute vaginitis; N12 Tubulo-interstitial nephritis, not specified as acute or chronic; J45.909 Unspecified asthma, uncomplicated; D64.9 Anemia, unspecified; F31.9 Bipolar disorder, unspecified; F20.9 Schizophrenia, unspecified; F17.200 Nicotine dependence, unspecified, uncomplicated
CPT/HCPCS: 36415; 80053; 81003; 81015; 81025; 85025; 99283

== ENCOUNTER 2020-10-05 13:58 | Emergency (ER) | payer OTHER ==
[2020-10-05 14:22] LABS: #Basophils 0.1 thou/uL (0.0-0.2); #Lymphocytes 2.3 thou/uL (1.20-3.40); #Monocytes 0.3 thou/uL (0.11-0.59); #Neutrophils 2.3 thou/uL (1.40-6.50); %Basophils 1.5 % (0.0-1.0); %Eosinophils 0.8 % (0.0-10.0); %Lymphocytes 46.1 % (21.0-51.0); %Monocytes 6.1 % (0.0-10.0); %Neutrophils 45.5 % (42.0-75.0); Hemoglobin 13.3 g/dL (12.0-16.0); Mean Corpuscular HGB CONC 33.8 g/dL (32.0-36.0); Mean Corpuscular Hemoglobin 31.5 pg (27.0-31.0); Mean Platelet Volume 6.6 fL (7.4-10.4); Platelet Count 347 thou/uL (130-400); Red Blood Cell (RBC) Count 4.23 mill/uL (4.20-5.40)
--- NOTE | 2020-10-05 15:20 | ULT ---
Pelvic sonogram transabdominal and transvaginal imaging with duplex evaluation HISTORY: Pelvic pain. Bleeding. FINDINGS: Urinary bladder is decompressed. The uterus has a heterogeneous echotexture and is retrover rafael/retroflexed. It measures up to 6.7 cm length. Endometrium is 0.8 cm. Right ovary 2.7 cm greatest length left ovary 2.8 cm. Each has a normal appear ance with good color and spectral Doppler flow. Distended venous structures noted at each adnexa. No solid mass. IMPRESSION : Retroverted/retroflexed uterus. No acute abnormalities are demonstrated.
[2020-10-05 15:21] LABS: Bilirubin Negative (Negative); Blood, Urine 3+ (Negative); Clarity Clear (Clear); Glucose, Urine (Dipstick) Normal (Negative); Ketone, Urine Negative (Negative); Leukocyte 250 Leu/uL (Negative); Nitrite Negative (Negative); Protein, Urine (Dipstick) 30 mg/dL (Neg-Trace); RBC/HPF 21-50 HPF (0-3); Specific Gravity, Urine 1.035 (1.002-1.036); Squamous Epithelial 0-3 HPF (0-3); Urobilinogen 3 mg/dL (Less than 2); WBC/HPF 21-50 HPF (0-3)
[2020-10-05 15:22] LABS: Bacteria/HPF 1+ HPF (None Seen)
== END 2020-10-05 16:25 | disposition home or self-care (01) ==
LOC: ERS 13:58
DX: O03.9 Complete or unspecified spontaneous abortion without complication (principal); J45.909 Unspecified asthma, uncomplicated; D64.9 Anemia, unspecified; F17.210 Nicotine dependence, cigarettes, uncomplicated
CPT/HCPCS: 36415; 76856; 81003; 81015; 84702; 85025; 86900; 86901

== ENCOUNTER 2021-06-18 10:33 | Emergency (ER) | payer OTHER | END 2021-06-18 11:37 | disposition home or self-care (01) | LOC: ERS 10:33 | DX: Z02.79 Encounter for issue of other medical certificate (principal); J45.909 Unspecified asthma, uncomplicated; D64.9 Anemia, unspecified | CPT/HCPCS: 99281 ==

== ENCOUNTER 2021-07-21 18:36 | Emergency (ER) | payer OTHER, SELFPAY | END 2021-07-21 20:48 | disposition left against medical advice (07) | LOC: ERS 18:36 | DX: Z53.21 Procedure and treatment not carried out due to patient leaving prior to being seen by health care provider (principal) ==

== ENCOUNTER 2021-08-08 14:43 | Emergency (ER) | payer OTHER, SELFPAY | END 2021-08-08 17:38 | disposition home or self-care (01) | LOC: ERS 14:43 | DX: R42 Dizziness and giddiness (principal) | CPT/HCPCS: 99281 ==

== ENCOUNTER 2022-01-10 21:21 | Emergency (ER) | payer OTHER ==
[2022-01-10 23:56] LABS: Bilirubin Negative (Negative); Blood, Urine Negative (Negative); Clarity Turbid (Clear); Glucose, Urine (Dipstick) Normal (Negative); Ketone, Urine Negative (Negative); Leukocyte 500 Leu/uL (Negative); Nitrite 2+ (Negative); Protein, Urine (Dipstick) Negative (Neg-Trace); Specific Gravity, Urine 1.013 (1.002-1.036); Urobilinogen Normal mg/dL (Less than 2); pH, Urine 7.5 (5.0-9.0)
[2022-01-10 23:57] LABS: Pregnancy Test - Urine (BHCG) Negative (Negative); Pregu Control Background? CLEAR/WHITE (CLR/WHITE); Pregu Control Bar Appear? YES (CONTROL BAR); Specific Gravity 1.013 (1.002-1.036)
[2022-01-11 00:05] LABS: Bacteria/HPF 4+ HPF (None Seen)
[2022-01-11 00:06] LABS: RBC/HPF 0-3 HPF (0-3)
== END 2022-01-11 00:35 ==
LOC: ERS 21:21
DX: F41.9 Anxiety disorder, unspecified (principal); N30.00 Acute cystitis without hematuria; R07.89 Other chest pain
CPT/HCPCS: 71045; 81003; 81015; 81025; 93005

== ENCOUNTER 2022-05-28 14:07 | Emergency (ER) | payer OTHER ==
[2022-05-28 15:16] LABS: #Lymphocytes 0.9 thou/uL (1.20-3.40); #Monocytes 0.5 thou/uL (0.11-0.59); #Neutrophils 8.2 thou/uL (1.40-6.50); %Basophils 0.2 % (0.0-1.0); %Eosinophils 0.3 % (0.0-10.0); %Lymphocytes 9.6 % (21.0-51.0); %Monocytes 4.9 % (0.0-10.0); Hemoglobin 12.6 g/dL (12.0-16.0); Mean Corpuscular HGB CONC 32.2 g/dL (32.0-36.0); Mean Corpuscular Hemoglobin 31.2 pg (27.0-31.0); Mean Corpuscular Volume 96.9 fL (78.0-98.0); Mean Platelet Volume 6.5 fL (7.4-10.4); Platelet Count 274 thou/uL (130-400); RBC Distribution Width 11.7 % (11.5-14.5); Red Blood Cell (RBC) Count 4.04 mill/uL (4.20-5.40); White Blood Cell (WBC) Count 9.6 thou/uL (4.8-10.8)
[2022-05-28 15:23] LABS: BHCG - Serum Negative (NEGATIVE); Pregs Control Background? CLEAR/WHITE (CLR/WHITE); Pregs Control Bar Appear? YES (CONTROL BAR)
[2022-05-28 15:32] LABS: ALT (SGPT) 12 U/L (8-55); AST (SGOT) 13 U/L (5-34); Alkaline Phosphatase 67 U/L (40-110); Anion Gap 12 mmol/L (10-20); BUN (Urea Nitrogen) 7 mg/dL (7.0-18.7); Bilirubin, Total 0.7 mg/dL (0.2-1.2); Calc. Creatinine Clearance 0 mL/min (70-130); Calcium 8.5 mg/dL (7.8-10.44); Carbon Dioxide 22 mmol/L (22-29); Chloride 103 mmol/L (98-107); Estimated GFR 92; Globulin 2.8 g/dL (2.4-3.5); Glucose 93 mg/dL (70-105); Lipase 11 U/L (8-78); Potassium 3.8 mmol/L (3.5-5.1); Protein, Total 6.8 g/dL (6.0-8.3); Sodium 133 mmol/L (136-145)
[2022-05-28 16:12] LABS: SARS-CoV-2 NAA Rapid Test Not Detected (NotDetected)
[2022-05-28 16:52] LABS: Bacteria/HPF None Seen HPF (None Seen); Bilirubin Negative (Negative); Blood, Urine Negative (Negative); Clarity Clear (Clear); Glucose, Urine (Dipstick) Normal (Negative); Ketone, Urine Negative (Negative); Leukocyte 250 Leu/uL (Negative); Nitrite Negative (Negative); Protein, Urine (Dipstick) Negative (Neg-Trace); RBC/HPF 0-3 HPF (0-3); Specific Gravity, Urine 1.016 (1.002-1.036); Squamous Epithelial 0-3 HPF (0-3); Urobilinogen Normal mg/dL (Less than 2); WBC/HPF 21-50 HPF (0-3); pH, Urine 7.5 (5.0-9.0)
== END 2022-05-28 17:46 | disposition home or self-care (01) ==
LOC: ERS 14:07
DX: N10 Acute pyelonephritis (principal); Z20.822 Contact with and (suspected) exposure to COVID-19; Z79.899 Other long term (current) drug therapy
CPT/HCPCS: 36415; 71045; 80053; 81003; 81015; 83690; 84703; 85025

== ENCOUNTER 2022-06-25 15:45 | Emergency (ER) | payer OTHER ==
[2022-06-25 16:34] LABS: #Eosinphils 0.1 thou/uL (0.0-0.7); #Lymphocytes 1.5 thou/uL (1.20-3.40); #Monocytes 0.4 thou/uL (0.11-0.59); #Neutrophils 3.4 thou/uL (1.40-6.50); %Basophils 0.4 % (0.0-1.0); %Eosinophils 1.1 % (0.0-10.0); %Lymphocytes 28.5 % (21.0-51.0); %Monocytes 7.7 % (0.0-10.0); %Neutrophils 62.4 % (42.0-75.0); Hemoglobin 13.5 g/dL (12.0-16.0); Mean Corpuscular Hemoglobin 32.4 pg (27.0-31.0); Mean Corpuscular Volume 95.2 fl (78.0-98.0); Platelet Count 232 10x3/uL (130-400); Red Blood Cell (RBC) Count 4.16 mill/uL (4.20-5.40); White Blood Cell (WBC) Count 5.4 10x3/uL (4.8-10.8)
[2022-06-25 16:50] LABS: BHCG - Serum Negative (NEGATIVE); Pregs Control Background? CLEAR/WHITE (CLR/WHITE); Pregs Control Bar Appear? YES (CONTROL BAR)
[2022-06-25 17:04] LABS: ALT (SGPT) 11 U/L (8-55); AST (SGOT) 13 U/L (5-34); Albumin 4.3 g/dL (3.5-5.0); Alkaline Phosphatase 69 U/L (40-110); Anion Gap 12 mmol/L (10-20); BUN (Urea Nitrogen) 8 mg/dL (7.0-18.7); Bilirubin, Total 0.6 mg/dL (0.2-1.2); Calc. Creatinine Clearance 0 mL/min (70-130); Calcium 9.2 mg/dL (7.8-10.44); Carbon Dioxide 23 mmol/L (22-29); Chloride 106 mmol/L (98-107); Estimated GFR 100; Globulin 3.2 g/dL (2.4-3.5); Glucose 87 mg/dL (70-105); Protein, Total 7.5 g/dL (6.0-8.3); Sodium 137 mmol/L (136-145)
[2022-06-25] MEDS ORDERED: Dicyclomine 20 MG TAB ONE (17:05)
[2022-06-25] MEDS ORDERED: Ondansetron ODT 4 MG TAB ONE (17:05)
[2022-06-25 17:47] LABS: Bilirubin Negative (Negative); Blood, Urine Negative (Negative); Clarity Clear (Clear); Glucose, Urine (Dipstick) Normal (Negative); Ketone, Urine Trace mg/dL (Negative); Leukocyte 500 Leu/uL (Negative); Nitrite Negative (Negative); Protein, Urine (Dipstick) 10 mg/dL (Neg-Trace); RBC/HPF 0-3 HPF (0-3); Specific Gravity, Urine 1.029 (1.002-1.036); Urobilinogen Normal mg/dL (Less than 2)
[2022-06-25 17:56] LABS: Bacteria/HPF 1+ HPF (None Seen); WBC/HPF 21-50 HPF (0-3)
[2022-06-25] MEDS ORDERED: Ketorolac Tromethamine 30 MG/ML VIAL ONE (18:09)
[2022-06-26 11:35] LABS: Chlamydia by PCR Not Detected (NotDetected); GC by PCR Not Detected (NotDetected)
== END 2022-06-25 18:31 | disposition home or self-care (01) ==
LOC: ERS 15:45
DX: N10 Acute pyelonephritis (principal); R11.2 Nausea with vomiting, unspecified
CPT/HCPCS: 80053; 81003; 81015; 83690; 84703; 85025; 87480; 87491; 87510; 87591; 87660; 96374; J1885; Q0162